=== PATIENT | male | born 1950 | race Caucasian/White ===

== ENCOUNTER 2018-09-06 12:12 | Outpatient (CLI) | payer MEDICARE, SELFPAY ==
[2018-09-08 09:34] LABS: PSA, Diagnostic <0.1 ng/ml (0-6.5)
[2018-09-09 06:30] LABS: Testosterone, Total 69 ng/dL (240-950)
== END 2018-09-06 12:32 ==
PROVIDERS: PCP Internal Medicine; Visit Provider Nurse Practitioner
DX: C61 Malignant neoplasm of prostate (principal)
CPT/HCPCS: 36415; 84403; 84153

== ENCOUNTER 2019-03-08 07:47 | Outpatient (CLI) | payer MEDICARE, SELFPAY ==
[2019-03-08 09:06] LABS: ALT 26 U/L (12-78); AST 15 U/L (15-37); Albumin 3.5 g/dL (3.4-5.0); CREATININE 1.08 mg/dL (0.70-1.30); Calcium 9.3 mg/dL (8.5-10.1); Chloride 107 mmol/L (98-107); Glucose 97 mg/dL (70-100); HDL Cholesterol 40 mg/dL (40-60); LDL CHOLESTEROL 115 mg/dL (<100); Sodium 145 mmol/L (136-145)
[2019-03-08 09:23] LABS: Alkaline Phosphatase 80 U/L (46-116); Anion Gap 4.7 mmol/L (3-11); BUN 26 mg/dL (7-18); Bilirubin, Total 0.3 mg/dL (0.2-1.0); CO2 33.3 mmol/L (21.0-32.0); Cholesterol 173 mg/dL (50-200); Potassium 4.5 mmol/L (3.5-5.1); Triglyceride 132 mg/dL (30-150)
== END 2019-03-08 08:07 ==
PROVIDERS: PCP Internal Medicine; Visit Provider Family Medicine
DX: I10 Essential (primary) hypertension (principal); Z13.6 Encounter for screening for cardiovascular disorders
CPT/HCPCS: 36415; 80053; 80061; 83721

== ENCOUNTER 2019-03-25 09:51 | Outpatient (CLI) | payer MEDICARE, OTHER, SELFPAY ==
[2019-03-27 09:22] LABS: PSA, Diagnostic <0.1 ng/ml (0-6.5)
[2019-03-30 03:37] LABS: Testosterone, Total 99 ng/dL (240-950)
== END 2019-03-25 10:11 ==
PROVIDERS: PCP Internal Medicine; Visit Provider Nurse Practitioner Family
DX: C61 Malignant neoplasm of prostate (principal)
CPT/HCPCS: 36415; 84403; 84153

== ENCOUNTER 2020-08-15 18:53 | Outpatient (REF) | payer MEDICARE, OTHER, SELFPAY | END 2020-08-15 19:13 | LOC: NCHCN 18:53 | PROVIDERS: PCP Internal Medicine; Visit Provider Family Medicine | DX: R82.998 Other abnormal findings in urine (principal); C61 Malignant neoplasm of prostate | CPT/HCPCS: 87086 ==

== ENCOUNTER 2020-09-10 18:07 | Outpatient (CLI) | payer MEDICARE, OTHER, SELFPAY ==
[2020-09-12 12:56] LABS: PSA, Ultrasensitive <0.01 ng/mL (<= 6.5)
[2020-09-14 14:22] LABS: Testosterone, Total 94 ng/dL (240-950)
== END 2020-09-10 18:27 ==
PROVIDERS: PCP Internal Medicine; Visit Provider Nurse Practitioner Family
DX: C61 Malignant neoplasm of prostate (principal)
CPT/HCPCS: 36415; 84153; 84403

== ENCOUNTER 2020-11-27 19:53 | Outpatient (REF) | payer MEDICARE, OTHER, SELFPAY ==
[2020-11-29 22:12] LABS: COVID-19 RT-PCR Result NEGATIVE (Negative)
== END 2020-11-27 20:13 ==
LOC: NCHCN 19:53
PROVIDERS: PCP Internal Medicine; Visit Provider Physician Assistant
DX: Z20.822 Contact with and (suspected) exposure to COVID-19 (principal)
CPT/HCPCS: U0003

== ENCOUNTER 2020-12-09 16:14 | Outpatient (REF) | payer MEDICARE, OTHER, SELFPAY ==
[2020-12-09 21:08] LABS: Abs Immature Grans 0.03 10^3/uL (0.0-0.06); Absolute Basophil Count 0.08 10^3/uL (0.0-0.2); Absolute Eosinophil Count 0.12 10^3/uL (0.0-0.7); Absolute Lymphocyte Count 2.46 10^3/uL (1.2-3.4); Absolute Monocyte Count 1.03 10^3/uL (0.1-0.8); Basophils % 0.7; HCT 43.1 % (40.0-50.0); HGB 14.4 g/dL (13.5-17.5); Immature Grans % 0.2; Lymphocytes % 20.5; MCH 30.6 pg (27.0-33.0); MCHC 33.4 % (32.0-36.0); MCV 91.5 fL (80-95); MPV 10.2 fL (8.0-11.0); Monocytes % 8.6; Nucleated RBC 0 %; Platelet Count 422 10^3/uL (130-400); RBC 4.71 10^6/uL (4.36-5.78); RDW 12.8 % (11.8-14.1); RDW-SD 43.2 fL; WBC 12.02 10^3/uL (4.4-10.8)
[2020-12-09 21:09] LABS: Absolute Neutrophil Count 8.29 10^3/uL (1.2-6.7)
[2020-12-09 21:31] LABS: ALT 33 U/L (16-63); AST 18 U/L (15-37); Albumin 3.9 g/dL (3.4-5.0); Alkaline Phosphatase 76 U/L (46-116); Anion Gap 5.2 mmol/L (3-11); BUN 45 mg/dL (7-18); Bilirubin, Total 0.2 mg/dL (0.2-1.0); CO2 26.8 mmol/L (21.0-32.0); CREATININE 1.9 mg/dL (0.70-1.30); Calcium 10.5 mg/dL (8.5-10.1); Chloride 101 mmol/L (98-107); Estimated GFR 35.02 (mL/min/1.73m2); Glucose 110 mg/dL (74-106); Potassium 5.9 mmol/L (3.5-5.1); Sodium 133 mmol/L (136-145); TSH (W/Ref FT4) 1.52 uIU/mL (0.36-3.74)
[2020-12-09 21:43] LABS: Total Protein 7.5 g/dL (6.4-8.2)
== END 2020-12-09 16:34 ==
LOC: NCHCN 16:14
PROVIDERS: PCP Internal Medicine; Visit Provider Family Medicine
DX: R53.1 Weakness (principal); I10 Essential (primary) hypertension
CPT/HCPCS: 80053; 84443; 85025

== ENCOUNTER → 2021-01-24 05:06 | Outpatient (CLI) | payer MEDICARE, OTHER, SELFPAY ==
--- NOTE | 2021-01-24 | DI.RAD_ITS ---
EXAM: XR CHEST 2V PA LATERAL CLINICAL HISTORY: ANT CHEST WALL PAIN,R07.89 TECHNIQUE: 2D digital imaging was performed. COMPARISON: CR RIGHT RIBS PA CXR-3 VIEWS from 01/15/2016 FINDINGS: MEDIASTINUM: Normal. HEART: Normal. PULMONARY VASCULATURE: Normal. LUNGS: Clear. PLEURAL SPACE: No pleural effusion or pneumothorax. BONE:Mild degenerative disc changes. OTHER FINDINGS:Sternum grossly normal. IMPRESSION: No acute pulmonary findings. DATA REPOSITORY: RADIATION DOSE DELIVERED:
== END ==
PROVIDERS: PCP Internal Medicine; Visit Provider Family Medicine
DX: R07.89 Other chest pain (principal)
CPT/HCPCS: 71046

== ENCOUNTER → 2022-03-27 01:13 | Outpatient (CLI) | payer MEDICARE, OTHER, SELFPAY ==
--- NOTE | 2022-03-27 15:26 | DI.RAD_ITS ---
Exam(s) XR HIP RT COMPLETE AP PELVIS EXAM: XR HIP RT COMPLETE AP PELVIS CLINICAL HISTORY: RT HIP JT PAIN, M25.551. TECHNIQUE: 2D digital imaging was performed of the right hip. Two images were obtained. AP pelvis a nd lateral right hip views were obtained. COMPARISON: No exams were available for comparison FINDINGS: BONES: No acute fracture is present. No bony destructive lesion is seen. JOINTS: No dislocation present. Mild degenerative changes are seen in the hips bilaterally. SOFT TISSUE: Atherosclerosis is present. IMPRESSION: Mild degenerative changes of the right hip. DATA REPOSITORY: RADIATION DOSE DELIVERED:
== END ==
PROVIDERS: PCP Internal Medicine; Visit Provider Family Medicine
DX: M25.551 Pain in right hip (principal); M16.11 Unilateral primary osteoarthritis, right hip
CPT/HCPCS: 73502

== ENCOUNTER 2022-05-18 14:21 | Outpatient (CLI) | payer MEDICARE, OTHER, SELFPAY ==
--- NOTE | 2022-05-18 13:45 | DI.RAD_ITS ---
Exam(s) XR KNEE RT 3V AP,LAT,SATISH EXAM: XR KNEE RT 3V AP,LAT,SATISH CLINICAL HISTORY: R knee pain. TECHNIQUE: 2D digital imaging was performed. COMPARISON: No exams were available for comparison FINDINGS: 3 views No evidence fracture. Moderate-advanced medial compartment joint space narrowing noted. No osteophy annika. Lateral compartment unremarkable. Patellofemoral compartment mild degenerative changes. IMPRESSION: Degenerative changes in the medial compartment. DATA REPOSITORY: RADIATION DOSE DELIVERED:
== END 2022-05-18 14:22 | disposition home or self-care (01) ==
LOC: DIORS 14:22
PROVIDERS: PCP Family Medicine; Referring Provider Family Medicine; Visit Provider Physician Assistant
DX: M17.11 Unilateral primary osteoarthritis, right knee
CPT/HCPCS: 20610; 73562; 99203; J1040

== ENCOUNTER 2022-05-18 15:44 | Outpatient (CLI) | payer MEDICARE, OTHER, SELFPAY ==
[2022-05-19 18:54] LABS: PSA, Ultrasensitive 0.04 ng/mL (<= 6.5)
[2022-05-25 12:48] LABS: Testosterone, Total 58 ng/dL (240-950)
== END 2022-05-18 15:45 | disposition home or self-care (01) ==
LOC: LBO 15:45
PROVIDERS: PCP Family Medicine; Visit Provider Nurse Practitioner Family
DX: C61 Malignant neoplasm of prostate (principal)
CPT/HCPCS: 20610; 36415; 73562; 84153; 84403; 99203; J1040

== ENCOUNTER 2022-05-24 13:02 | Emergency (ER) | payer MEDICARE, OTHER, SELFPAY ==
[2022-05-24 13:07] VITALS: BP 127/68; PULSE 85; RESP 18; TEMP 36.9; O2SAT 91
== END 2022-05-24 14:27 ==
LOC: ER 13:47
PROVIDERS: Emergency Provider Physician Assistant; PCP Family Medicine
DX: Z53.21 Procedure and treatment not carried out due to patient leaving prior to being seen by health care provider (principal)

== ENCOUNTER 2022-05-25 17:28 | Outpatient (REF) | payer MEDICARE, OTHER, SELFPAY ==
[2022-05-25 18:52] LABS: HCT 39.1 % (40.0-50.0); HGB 12.7 g/dL (13.5-17.5); MCH 29.5 pg (27.0-33.0); MCHC 32.5 % (32.0-36.0); MCV 91 fL (80-95); MPV 9.7 fL (8.0-11.0); Platelet Count 594 10^3/uL (130-400); RDW 13.2 % (11.8-14.1); RDW-SD 43.8 fL; WBC 24.46 10^3/uL (4.4-10.8)
[2022-05-25 19:01] LABS: ALT 57 U/L (16-63); AST 33 U/L (15-37); Albumin 2.3 g/dL (3.4-5.0); Alkaline Phosphatase 124 U/L (46-116); Anion Gap 1.2 mmol/L (3-11); BUN 24 mg/dL (7-18); Bilirubin, Total 0.7 mg/dL (0.2-1.0); CO2 30.8 mmol/L (21.0-32.0); CREATININE 1.1 mg/dL (0.70-1.30); Calcium 9.4 mg/dL (8.5-10.1); Chloride 95 mmol/L (98-107); Glucose 121 mg/dL (74-106); Sodium 127 mmol/L (136-145); Total Protein 7.5 g/dL (6.4-8.2)
[2022-05-25 19:15] LABS: Bilirubin Small (Negative); Blood Moderate (Negative); Clarity Cloudy (Clear); Glucose Negative (Negative); Ketones Negative (Negative); Leukocyte Esterase Negative (Negative); Nitrite Negative (Negative); Specific Gravity 1.025 (1.005-1.025); pH 5.5 (5-8)
[2022-05-25 19:38] LABS: Epithelial Cells Rare HPF (Negative); RBC 0-2 HPF (0-2); WBC 0-2 HPF (0-5)
[2022-05-25 19:39] LABS: C & S Indicated? Yes; Crystals Many Amorphous HPF (Negative); Mucus Negative (Negative)
[2022-05-26 14:11] LABS: Abs Immature Grans 0.24 10^3/uL (0.0-0.06); Absolute Eosinophil Count 0.07 10^3/uL (0.0-0.7); Absolute Lymphocyte Count 2.38 10^3/uL (1.2-3.4); Basophils % 0.3; Eosinophils % 0.3; HCT 39.7 % (40.0-50.0); HGB 12.8 g/dL (13.5-17.5); Lymphocytes % 9.7; MCH 29.9 pg (27.0-33.0); MCHC 32.2 % (32.0-36.0); MCV 93 fL (80-95); MPV 10.3 fL (8.0-11.0); Monocytes % 12.5; Neutrophils % 76.2; Platelet Count 607 10^3/uL (130-400); RBC 4.28 10^6/uL (4.36-5.78); RDW 13.2 % (11.8-14.1); RDW-SD 45.1 fL
[2022-05-26 14:12] LABS: Absolute Basophil Count 0.07 10^3/uL (0.0-0.2); Absolute Monocyte Count 3.06 10^3/uL (0.1-0.8); Absolute Neutrophil Count 18.67 10^3/uL (1.2-6.7)
[2022-05-26 15:05] LABS: Diff Comment Agrees w/ Instrument; RBC Morphology Normal
== END 2022-05-25 17:29 | disposition home or self-care (01) ==
LOC: NCHCN 17:28
PROVIDERS: PCP Family Medicine; Visit Provider Family Medicine
DX: R31.9 Hematuria, unspecified (principal)
CPT/HCPCS: 80053; 85027; 81003; 81015; 85025; 87086

== ENCOUNTER → 2022-05-27 09:52 | Outpatient (CLI) | payer MEDICARE, OTHER, SELFPAY ==
--- NOTE | 2022-05-27 08:20 | DI.RAD_ITS ---
Exam(s) XR CHEST 2V PA LATERAL EXAM: XR CHEST 2V PA LATERAL CLINICAL HISTORY: ELEVATED WHITE BLOOD CELL COUNT, D72.829 TECHNIQUE: 2D digital imaging was performed. COMPARISON: CR XR CHEST 2V PA LATERAL from 01/24/2021 FINDINGS: MEDIASTINUM: Normal. HEART: Normal. PULMONARY VASCULATURE: Normal. LUNGS: Dense infiltrate superior segment left lower lobe. Additional patchy infiltrate at left lung base. Right lung appears clear. PLEURAL SPACE: Question of tiny left pleural effusion. No pneumothorax. BONE:Unremarkable for age. IMPRESSION: Left lower lobe pneumonia. DATA REPOSITORY: RADIATION DOSE DELIVERED:
[2022-05-27 09:02] LABS: ESR 77 mm/hr (0-20)
[2022-05-27 09:04] LABS: HCT 36.4 % (40.0-50.0); HGB 12.1 g/dL (13.5-17.5); MCH 29.9 pg (27.0-33.0); MCHC 33.2 % (32.0-36.0); MCV 90 fL (80-95); MPV 9.3 fL (8.0-11.0); Platelet Count 544 10^3/uL (130-400); RBC 4.05 10^6/uL (4.36-5.78); RDW 12.9 % (11.8-14.1); RDW-SD 42.8 fL
[2022-05-27 09:13] LABS: WBC 34.89 10^3/uL (4.4-10.8)
[2022-05-27 09:23] LABS: Absolute Lymphocyte Count 2.09 10^3/uL (1.2-3.4); Absolute Monocyte Count 2.09 10^3/uL (0.1-0.8); Absolute Neutrophil Count 30.01 10^3/uL (1.2-6.7); Atypical Lymphocytes % 1; Diff Comment Manual Differential; RBC Morphology Normal
[2022-05-27 09:35] LABS: ALT 46 U/L (16-63); AST 26 U/L (15-37); Alkaline Phosphatase 147 U/L (46-116); Anion Gap 7.9 mmol/L (3-11); BUN 27 mg/dL (7-18); Bilirubin, Total 0.9 mg/dL (0.2-1.0); CO2 29.1 mmol/L (21.0-32.0); Calcium 9.6 mg/dL (8.5-10.1); Chloride 99 mmol/L (98-107); Glucose 126 mg/dL (74-106); Potassium 3.8 mmol/L (3.5-5.1); Sodium 136 mmol/L (136-145); Total Protein 7.3 g/dL (6.4-8.2)
[2022-05-27 09:36] LABS: C-Reactive Protein > 25.00 mg/dL (0.0-0.3)
== END ==
PROVIDERS: PCP Family Medicine; Visit Provider Family Medicine
DX: R31.9 Hematuria, unspecified (principal); J18.9 Pneumonia, unspecified organism; D72.829 Elevated white blood cell count, unspecified
CPT/HCPCS: 36415; 80053; 85652; 87040; 71046; 85025; 86140

== ENCOUNTER 2022-05-27 10:01 | Outpatient (CLI) | payer MEDICARE, OTHER, SELFPAY | END 2022-05-27 10:02 | disposition home or self-care (01) | LOC: LBO 10:03 | PROVIDERS: PCP Family Medicine; Visit Provider Family Medicine ==

== ENCOUNTER 2022-05-29 11:22 | Inpatient (IN) | payer MEDICARE, OTHER, SELFPAY ==
[2022-05-29] VITALS (35 sets, daily range): BP systolic 109–125; BP diastolic 63–71; PULSE 77–99; RESP 7–22; TEMP 36.9–38.2; O2SAT 92–96
--- NOTE | 2022-05-29 11:30 | RT.EKG_ITS ---
APPROVED REPORT Exam: Resting ECG Reason for Exam: Chest pain Patient Location: E HR:92 bpm ECG Measurements Heart Rate 92 AXIS CO 193 P -47 QRSd 90 QRS 54 QT 323 T 36 QTc 400 Conclusion Sinus or ectopic atrial rhythm...P axis (-45,135)
--- NOTE | 2022-05-29 11:49 | W.ED.GENAD ---
Discharge Plan Disposition Patient Disposition: [facility] INPATIENT Condition: Stable Discharge Details Clinical Impression: Pneumonia Admit Date/Time: 05/31/22 11:28 Admit Provider: Carmelo Michel Attending Provider: Carmelo Michel Primary Care Provider: Stephany Rodriguez ED Provider: Dodie Klein Discharge Data Discharge Date/Time-TO BE ENTERED AT DEPARTURE: 05/29/22 15:23 Medical Decision Making 72-year-old male with a past medical history of hypertension prostate cancer and urethral cancer presents to the ER with a chief complaint of hemoptysis cough shortness of breath. Patient was diagnosed with left lower lobe pneumonia on the and was given levofloxacin 500 mg daily 3 days ago by his PCP. He reports that this morning he had a coughing fit and coughed up some yellow blood-tinged sputum and it scared him which prompted his visit to the emergency department. Family also reports that they called the PCP office and they instructed him to be further evaluated here in the ER. Upon arrival patient is slightly tachypneic, and dyspneic O2 sat is 89 to 92% on room air. Patient was placed on 2 L nasal cannula and is now satting 95%. He reports that since Wednesday he has had exertional shortness of breath and weakness. He is alert and oriented x3. He is complaining of some left-sided chest pain. Denies any diarrhea. Reports nausea with cough. Cardiac work-up ordered including EKG, CRP, lactate blood cultures x2. Albuterol inhaler ordered, COVID test ordered. Patient family report that had a negative rapid home test recently. Will order CT chest to further evaluate the left lower lobe pneumonia and pleural effusion which was noted on chest x-ray . EKG was reviewed by Dr. Baires ER attending, no old EKG available for review. Please see his official report. No evidence of ST elevation no STEMI. WBCs 31.12, hemoglobin 11.6 hematocrit 34.9, platelets 506, absolute neutrophils 27.39, lactate slightly elevated 1.6, sodium 133 BUN 25 creatinine 1.0 GFR greater than 60 glucose 119 AST 54 alk phos 1 4400 C-reactive protein greater than 25.00 1330: Spoke with radiologist Dr. Sutherland regarding CT chest negative for PE very large left-sided pneumonia noted, see official report. No effusion. 1338: Spoke with Dr. Michel who is on for hospitalist regarding patient case and details. After discussion with family and patient at this time admission is recommended due to failed outpatient treatment and borderline hypoxia upon arrival. At this time COVID test is pending. Plan is for admission for IV antibiotics and further treatment and observation. Procalcitonin added onto labs, Zosyn 3.75 g IV ordered. Curb 65 score is 2 moderate risk this is without the COVID result. Medical Records Medical records reviewed: Yes I reviewed the patient's medical records. Lab Data Lab results reviewed: Yes I reviewed the patient's lab results. Labs: 05/29/22 12:45 Blood Blood Culture - Pending 05/29/22 12:00 Blood Blood Culture - Pending Laboratory Tests Range/Units 05/29/22 05/29/22 05/29/22 12:00 12:00 12:00 WBC (4.4-10.8) 10^3/uL 31.12 H* RBC (4.36-5.78) 10^6/uL 3.94 L Hgb (13.5-17.5) g/dL 11.6 L Hct (40.0-50.0) % 34.9 L MCV (80-95) fL 89 MCH (27.0-33.0) pg 29.4 MCHC (32.0-36.0) % 33.2 RDW (11.8-14.1) % 13.0 Plt Count (130-400) 10^3/uL 506 H MPV (8.0-11.0) fL 9.1 Immature Gran % 0.0 Neutrophils % 83.0 Band Neutrophils % 5 Lymphocytes % 6.0 Monocytes % 6.0 Eosinophils % 0.0 Basophils % 0.0 Nucleated RBC % (0.0-0.3) % 0.0 Absolute Neutrophils (1.2-6.7) 10^3/uL 27.39 H Absolute Lymphocytes (1.2-3.4) 10^3/uL 1.87 Absolute Monocytes (0.1-0.8) 10^3/uL 1.87 H Absolute Eosinophils (0.0-0.7) 10^3/uL 0.00 Absolute Basophils (0.0-0.2) 10^3/uL 0.00 RBC Morphology Normal VBG Lactate (0.6-1.4) mmol/L 1.6 H Sodium (136-145) mmol/L 133 L Potassium (3.5-5.1) mmol/L 3.7 Chloride (98-107) mmol/L 97 L Carbon Dioxide (21.0-32.0) mmol/L 30.8 Anion Gap (3-11) mmol/L 5.2 BUN (7-18) mg/dL 25 H Creatinine (0.70-1.30) mg/dL 1.0 Estimated GFR/1.73 m2 (mL/min/1.73m2) >= 60.00 Glucose (74-106) mg/dL 119 H Calcium (8.5-10.1) mg/dL 9.4 Magnesium (1.8-2.4) mg/dL 1.9 Total Bilirubin (0.2-1.0) mg/dL 1.1 H AST (15-37) U/L 54 H ALT (16-63) U/L 54 Alkaline Phosphatase (46-116) U/L 144 H Troponin I (<or=60) ng/L < 50 C-Reactive Protein (0.0-0.3) mg/dL > 25.00 H Total Protein (6.4-8.2) g/dL 7.3 Albumin (3.4-5.0) g/dL 1.7 L COVID-19 Source Range/Units 05/29/22 13:10 WBC (4.4-10.8) 10^3/uL RBC (4.36-5.78) 10^6/uL Hgb (13.5-17.5) g/dL Hct (40.0-50.0) % MCV (80-95) fL MCH (27.0-33.0) pg MCHC (32.0-36.0) % RDW (11.8-14.1) % Plt Count (130-400) 10^3/uL MPV (8.0-11.0) fL Immature Gran % Neutrophils % Band Neutrophils % Lymphocytes % Monocytes % Eosinophils % Basophils % Nucleated RBC % (0.0-0.3) % Absolute Neutrophils (1.2-6.7) 10^3/uL Absolute Lymphocytes (1.2-3.4) 10^3/uL Absolute Monocytes (0.1-0.8) 10^3/uL Absolute Eosinophils (0.0-0.7) 10^3/uL Absolute Basophils (0.0-0.2) 10^3/uL RBC Morphology VBG Lactate (0.6-1.4) mmol/L Sodium (136-145) mmol/L Potassium (3.5-5.1) mmol/L Chloride (98-107) mmol/L Carbon Dioxide (21.0-32.0) mmol/L Anion Gap (3-11) mmol/L BUN (7-18) mg/dL Creatinine (0.70-1.30) mg/dL Estimated GFR/1.73 m2 (mL/min/1.73m2) Glucose (74-106) mg/dL Calcium (8.5-10.1) mg/dL Magnesium (1.8-2.4) mg/dL Total Bilirubin (0.2-1.0) mg/dL AST (15-37) U/L ALT (16-63) U/L Alkaline Phosphatase (46-116) U/L Troponin I (<or=60) ng/L C-Reactive Protein (0.0-0.3) mg/dL Total Protein (6.4-8.2) g/dL Albumin (3.4-5.0) g/dL COVID-19 Source Nasal/Nares HPI General Mode of arrival: ambulatory. Date/Time Provider Initiated Documentation: 05/29/22 11:23. Limitations to Documentation: no limitations. Information obtained by: patient, family, RN notes reviewed and old records reviewed. HPI Narrative: 72-year-old male with a past medical history of hypertension prostate cancer and urethral cancer presents to the ER with a chief complaint of hemoptysis cough shortness of breath. Patient was diagnosed with left lower lobe pneumonia on the and was given levofloxacin 500 mg daily 3 days ago by his PCP. He reports that this morning he had a coughing fit and coughed up some yellow blood-tinged sputum and it scared him which prompted his visit to the emergency department. Family also reports that they called the PCP office and they instructed him to be further evaluated here in the ER. Upon arrival patient is slightly tachypneic, and dyspneic O2 sat is 89 to 92% on room air. Patient was placed on 2 L nasal cannula and is now satting 95%. He reports that since Wednesday he has had exertional shortness of breath and weakness. He is alert and oriented x3. He is complaining of some left-sided chest pain. Denies any diarrhea. Reports nausea with cough. Related Data Home Medications Medication Instructions Recorded Confirmed allopurinol 100 mg tablet 100 mg PO DAILY 05/18/15 05/29/22 naproxen sodium 220 mg tablet 2 tab PO PRN PRN 01/15/16 05/29/22 (Aleve) diltiazem HCl 240 mg 240 mg PO DAILY 04/07/22 05/29/22 capsule,extended release 24 hr oxybutynin chloride 10 mg 10 mg PO DAILY 04/07/22 05/18/22 tablet,extended release 24 hr levofloxacin 500 mg tablet 1 tab PO DAILY 05/29/22 05/29/22 tolterodine 2 mg capsule,extended 1 cap PO DAILY 05/29/22 05/29/22 release 24 hr Allergies Allergy/AdvReac Type Severity Reaction Status Date / Time No Known Allergies Allergy Unverified 05/29/22 11:35 General Stated Complaint: RespSymp LORI: 3 Review of Systems All systems reviewed & are unremarkable except as noted in HPI and below Constitutional Constitutional: Reports as per HPI, Denies chills, Reports fatigue, Denies fever(s) and Reports weakness Neurologic Neurologic: Reports weakness Endocrine Endocrine: Reports fatigue PFSH All Active Problems (Updated 05/29/22 @ 16:55 by Carmelo Michel MD) Weight loss (Acute) Pleuritic chest pain (Acute) Hemoptysis (Acute) Status post prostatectomy (Acute) Pneumonia (Acute) Primary osteoarthritis of right knee (Acute) Colon polyp (Acute) Hypertension (Chronic) Urethral cancer (Acute) Medical History (Updated 05/29/22 @ 16:55 by Carmelo Michel MD) Bilateral cataracts Constipation Gout Prostate cancer Family History (Updated 05/29/22 @ 16:50 by Carmelo Michel MD) Father , age 70's; unknown cause No problems noted. Mother , age 74; unknown cause No problems noted. Brother , age 74, unknown cause No problems noted. Sister , age 76, unknown cause No problems noted. Social History (Updated 05/29/22 @ 16:51 by Carmelo Michel MD) Smoking/Tobacco Use Status: Former Tobacco Use Quit Date: 05/29/22 Tobacco: How many years used: 26 Smoking risk assessment performed?: Yes Alcohol Intake: former Drug use: Never Do you feel safe at home: Yes Do you feel safe in your relationship?: Yes Exam Narrative Exam Narrative: Constitutional: Alert and oriented x3. Appears stated age. Normal body habitus. Head: Normocephalic, no trauma. Eyes: Pupils PERRL, Red reflex noted, EOM's intact. Eyelids symmetrical without lesions, discharge, or swelling. ENT: Bilateral TM's WNL, External ear normal to inspection, no mastoid TTP, swelling, or erythema, Nasal turbinates WNL, no nasal discharge. Normal dentition, Posterior pharynx WNL, no exudate. Chest: RRR, Normal S1, S2, distal pulses intact. Resp: Lungs diminished to auscultation bilaterally, no obvious wheezes, rales, or rhonchi. Abdomen: Soft, non-distended, Normoactive bowel sounds all 4 quads. Musculoskeletal: Normal gait, 5/5 strength to all four extremities. Skin: No suspicious rashes or lesions. Capillary refill less than 2 sec. Neurologic: Cranial nerves II-XII intact. Alert and oriented x 3. Motor: No deficits noted. Sensory: Intact bilaterally all 4 extremities. Reflexes: DTR's intact bilaterally.. Hematologic/Lymphatic: No ecchymosis, no lymphadenopathy. Course Vital Signs Vital signs: Vital Signs Temperature 36.9 C 05/29/22 11:27 Pulse 99 H 05/29/22 11:27 Respiratory Rate 20 05/29/22 11:27 Blood Pressure 122/68 05/29/22 11:27 Pulse Oximetry 92 05/29/22 11:27 Temperature 36.9 C 05/29/22 11:27 Temperature Source Skin 05/29/22 11:27 Pulse 99 H 05/29/22 11:27 Respiratory Rate 20 05/29/22 11:27 Respiratory Effort 05/29/22 11:40 Blood Pressure 122/68 05/29/22 11:27 Blood Pressure Position Sitting 05/29/22 11:27 Pulse Oximetry 92 05/29/22 11:27 Oxygen Delivery Method Room Air 05/29/22 11:27 Oxygen Flow Rate 0 05/29/22 11:27 Pain Level 5 05/29/22 11:27 Lab/Test Results Lab/Test Results: 05/29/22 11:32 Blood Blood Culture - Pending 05/29/22 11:32 Blood Blood Culture - Pending
[2022-05-29 12:06] LABS: Lactate 1.6 mmol/L (0.6-1.4)
[2022-05-29 12:10] LABS: HCT 34.9 % (40.0-50.0); HGB 11.6 g/dL (13.5-17.5); MCH 29.4 pg (27.0-33.0); MCHC 33.2 % (32.0-36.0); MCV 89 fL (80-95); MPV 9.1 fL (8.0-11.0); Platelet Count 506 10^3/uL (130-400); RBC 3.94 10^6/uL (4.36-5.78); RDW-SD 42.5 fL
[2022-05-29] MEDS: Albuterol HFA 8 GM 60 PUFF INH IH (12:17)
[2022-05-29] MEDS: Inhaler, Assist Device 1 EACH MC (12:18)
[2022-05-29 12:23] LABS: WBC 31.12 10^3/uL (4.4-10.8)
[2022-05-29 12:29] LABS: ALT 54 U/L (16-63); AST 54 U/L (15-37); Absolute Lymphocyte Count 1.87 10^3/uL (1.2-3.4); Absolute Monocyte Count 1.87 10^3/uL (0.1-0.8); Absolute Neutrophil Count 27.39 10^3/uL (1.2-6.7); Albumin 1.7 g/dL (3.4-5.0); Alkaline Phosphatase 144 U/L (46-116); Anion Gap 5.2 mmol/L (3-11); BUN 25 mg/dL (7-18); Bands % 5; Bilirubin, Total 1.1 mg/dL (0.2-1.0); CO2 30.8 mmol/L (21.0-32.0); Calcium 9.4 mg/dL (8.5-10.1); Chloride 97 mmol/L (98-107); Diff Comment Manual Differential; Glucose 119 mg/dL (74-106); Magnesium 1.9 mg/dL (1.8-2.4); Potassium 3.7 mmol/L (3.5-5.1); RBC Morphology Normal; Sodium 133 mmol/L (136-145); Total Protein 7.3 g/dL (6.4-8.2); Troponin I < 50 ng/L (<or=60)
[2022-05-29 12:46] LABS: C-Reactive Protein > 25.00 mg/dL (0.0-0.3)
[2022-05-29] MEDS: Omnipaque 350 MG/ML 100 ML BTL 67 ML IJ (12:49)
[2022-05-29] MEDS: Normal Saline Flush 10 ML SYR IVP (12:54)
--- NOTE | 2022-05-29 13:00 | DI.CT_ITS ---
Exam(s) CT CHEST PE CTA EXAM: CT CHEST PE CTA CLINICAL HISTORY: Hemoptysis, hx pneumonia, effusion, R/O PE. TECHNIQUE: Imaging Protocol: Axial CT angiography was performed with multi-slice acquisition and mu lti-planar reconstructions as well as axial, coronal and sagittal MIP reconstructions. CONTRAST MATERIAL: Intravenous: Omnipaque 350 Contrast volume:67 ml COMPARISON: CT ABD PELVIS WITH CONTRAST from 08/02/2013 CR XR CHEST 2V PA LATERAL from 01/24/2021 CR XR CHEST 2V PA LATERAL from 05/27/2022 FINDINGS: Pulmonary Arteries: No evidence of filling defect to suggest pulmonary emboli. Tracheobronchial tree: No bronchiectasis or mucus plugging. Mediastinum and Bekah: 1.9 centimeter left hilar lymph node. No fluid collection. Pulmonary parenchyma: Underlying emphysematous changes. Dense infiltrate occupying a large portion o f the left lower lobe. Large bleb seen the superior aspect of the left lower lobe. Multiple other s maller blebs. Additional patchy infiltrates in the anterior left upper lobe and lingula. Focal area of scarring at the confluence of the major and minor fissures on the right. No right-sided infiltra annika. There is a bleb extending into the inferior right neck adjacent to the trachea. Pleura: No effusion or pneumothorax. Heart: The heart is not dilated. Mild coronary artery calcifications are seen. Aorta: Thoracic aorta non-dilated. No aneurysm. No dissection. Mild atherosclerotic changes. Upper abdomen: Stable left adrenal nodule. Small hiatal hernia. Pancreas somewhat atrophic.. Bones: Unremarkable for age. IMPRESSION: Severe left lower lobe pneumonia. Additional infiltrates in the lingula. No evidence of pulmonary emb olism. RADIATION DOSE DELIVERED: 321.51mGy.cm Total DLP DATA REPOSITORY: All CT scans at this facility are submitted to the National Radiology Data Registry (NRDR) Dose Index Registry (DIR) with the [employer] ([employer]). RADIATION OPTIMIZATION: All CT scans at this facility use at least one of these dose optimization te chniques: automated exposure control; mA and/or kV adjustment per patient size (includes targeted exa ms where dose is matched to clinical indication); or iterative reconstruction.
[2022-05-29] MEDS: Normal Saline 1,000 ML 200 ML IV (13:08)
[2022-05-29 13:20] LABS: Source Nasal/Nares
[2022-05-29 14:10] LABS: COVID-19 PCR Negative (Negative)
[2022-05-29 14:30] LABS: Procalcitonin 0.4 ng/mL
[2022-05-29] MEDS: PIPERACILLIN/TAZO 3.375 GM in Normal Saline 50 ML IVPB (14:45)
--- NOTE | 2022-05-29 16:04 | HPE_ITS ---
Date of service: 05/29/22 Time of Service: 16:04 Assessment and Plan Assessment and plan (1) Pneumonia: Status: Acute Assessment and plan: Continue Levaquin and Zosyn to the regimen. Encourage use of I-S and acapella, put him on scheduled aerosolized bronchodilators. Supply supplemental oxygen to keep his SPO2 greater than 90%. Obtain sputum culture and blood cultures as well as sputum for mycoplasma. Check urine antigen for Legionella and strep antigen. In the setting of hemoptysis and weight loss we will also order sputum for cytology. Patient gives no known exposure to tuberculosis other than he had BCG antigen injected into his bladder. We will give him cough suppressants including Tussionex and also will order Mucinex. Professional time spent interviewing and examining patient, discussion of goals of care with hospital team (care management, nursing and consulting professiona ls) was 45 minutes. (2) Hemoptysis: Status: Acute Assessment and plan: As above. If there is no resolution with the above treatment consider fiberoptic bronchoscopy for definitive diagnosis. (3) Pleuritic chest pain: Status: Acute Assessment and plan: We will give the patient Tussionex for his cough and apply lidocaine patches. (4) Weight loss: Status: Acute Assessment and plan: Given his history of urethral cancer and prostate cancer and 20 pound weight loss over the past month that was involuntary this raises suspicion that he has metastatic cancer. (5) Hypertension: Status: Chronic Assessment and plan: Continue home dose of diltiazem CD History of Present Illness History of Present Illness Chief Complaint: hemptysis, fever, pleuritic chest pain Narrative: 72-year-old male former smoker quit smoking 30 years ago who has a history of prostate cancer status post prostatectomy and subsequent radiation treatment presents emergency department with a 1 week history of increasing shortness of breath and 3-day history of left-sided pleuritic chest pain and 1 day history of hemoptysis. Patient is fully vaccinated against COVID and is had both booster shots. He took a COVID test at home that was negative. He was seen in his PCP office in [facility] 3 days ago and started on Levaquin 500 mg daily. In spite of this he has had worsening cough and dyspnea and now new onset hemoptysis. When he started with a hemoptysis he called his PCP office and was referred to the emergency department. Work-up included chest x-ray and CT scan of the chest. Chest x-ray revealed left lower lobe pneumonia. He underwent CTA of his chest to rule out a pulmonary embolus and this showed severe left lower lobe pneumonia with additional infiltrates in the lingula. No PE. No pleural effusion. Laboratory studies were consistent with pneumonia he had a white count of 31,000. He has a mild anemia with a hemoglobin 11.6 g hematocrit 34%. He has a leftward shift and his white cell count with 27,000 polys. Blood lactate was mildly elevated at 1.6 chemistry panel was remarkable for mild elevation of his liver enzymes with an AST of 54 alkaline phosphatase 144 and high CRP of greater than 25 and a procalcitonin level of 0.4. Troponin I was less than 50. On arrival to the emergency department his temperature was 36.9 his pulse oximetry demonstrated a an SPO2 of 92% but at times would drop down to 88%. He was placed on supplemental oxygen at 1 L/min per nasal cannula which is kept his oxygen saturation in the mid 90s. Rest of his vital signs are stable. Nancy Klein from our ED department discussed the case with me and we felt that he be best served as an observation for parenteral antibiotics and bronchodilators and cultures. Blood cultures were obtained in the emergency department I have ordered sputum culture and sputum for mycoplasma. Zosyn has been added to his antibiotic regimen he will be continued on Levaquin. Additional history from the patient reveals he has been having night sweats and has had about a 20 pound weight loss over the past month raising some concern for possible malignancy. I shared this concern with the patient but explained that everything is pointing more towards a pneumonia and at this point we will treat it like pneumonia with broad-spectrum IV antibiotics and see how he does. Review of Systems All systems reviewed & are unremarkable except as noted in HPI and below PFSH All Active Problems (Updated 05/29/22 @ 16:55 by Carmelo Michel MD) Weight loss (Acute) Pleuritic chest pain (Acute) Hemoptysis (Acute) Status post prostatectomy (Acute) Pneumonia (Acute) Primary osteoarthritis of right knee (Acute) Colon polyp (Acute) Hypertension (Chronic) Urethral cancer (Acute) Medical History (Updated 05/29/22 @ 16:55 by Carmelo Michel MD) Bilateral cataracts Constipation Gout Prostate cancer Family History (Updated 05/29/22 @ 16:50 by Carmelo Michel MD) Father , age 70's; unknown cause No problems noted. Mother , age 74; unknown cause No problems noted. Brother , age 74, unknown cause No problems noted. Sister , age 76, unknown cause No problems noted. Social History (Updated 05/29/22 @ 16:51 by Carmelo Michel MD) Smoking/Tobacco Use Status: Former Tobacco Use Quit Date: 05/29/22 Tobacco: How many years used: 26 Smoking risk assessment performed?: Yes Alcohol Intake: former Drug use: Never Do you feel safe at home: Yes Do you feel safe in your relationship?: Yes Meds Allergies and Home Medications Allergies Allergy/AdvReac Type Severity Reaction Status Date / Time No Known Allergies Allergy Unverified 05/29/22 11:35 Home Medications Medication Instructions Recorded Confirmed Type allopurinol 100 mg tablet 100 mg PO DAILY 05/18/15 05/29/22 History naproxen sodium 220 mg tablet 2 tab PO PRN PRN 01/15/16 05/29/22 History (Aleve) diltiazem HCl 240 mg 240 mg PO DAILY 04/07/22 05/29/22 History capsule,extended release 24 hr oxybutynin chloride 10 mg 10 mg PO DAILY 04/07/22 05/18/22 History tablet,extended release 24 hr levofloxacin 500 mg tablet 1 tab PO DAILY 05/29/22 05/29/22 History tolterodine 2 mg capsule,extended 1 cap PO DAILY 05/29/22 05/29/22 History release 24 hr Exam Narrative Exam Narrative: Alert and oriented x4 HEENT: Atraumatic normocephalic, pupils equally round reactive to light and accommodation, extraocular motion intact, TMs intact, nares moist and patent without exudate or bleeding, oropharynx noninjected without exudate, teeth in poor repair with a number of teeth and a few teeth with caries Neck: Supple, nontender, without thyromegaly or lymphadenopathy or JVD. Normal carotid pulses Lungs: Clear to auscultation on the right side but the left side he has markedly diminished breath sounds at the left base along with some scattered rhonchi on the left side Heart: Regular rate and rhythm without murmur rub or gallop. Normal apical impulse Abdomen: Nondistended, normal bowel sounds, nontender to palpation or percussion, no organomegaly, no bruits, no palpable masses Genitalia and rectal exam: Deferred Extremities: Normal range of motion with normal strength. No peripheral cyanosis or edema. Normal pulses Neurologic: Cranial nerves II through XII grossly within normal limits. Normal strength and sensation over the face trunk and extremities. Results Imaging Chest x-ray: report reviewed and image reviewed CT scan - chest: report reviewed and image reviewed EKG: report reviewed and image reviewed Labs Result diagrams: 05/29/22 12:00 05/29/22 12:00 Labs: Laboratory Results - last 24 hr 05/29/22 05/29/22 05/29/22 12:00 12:00 12:00 WBC 31.12 H* RBC 3.94 L Hgb 11.6 L Hct 34.9 L MCV 89 MCH 29.4 MCHC 33.2 RDW 13.0 Plt Count 506 H MPV 9.1 Immature Gran % 0.0 Neutrophils % 83.0 Band Neutrophils % 5 Lymphocytes % 6.0 Monocytes % 6.0 Eosinophils % 0.0 Basophils % 0.0 Nucleated RBC % 0.0 Absolute Neutrophils 27.39 H Absolute Lymphocytes 1.87 Absolute Monocytes 1.87 H Absolute Eosinophils 0.00 Absolute Basophils 0.00 RBC Morphology Normal VBG Lactate 1.6 H Sodium 133 L Potassium 3.7 Chloride 97 L Carbon Dioxide 30.8 Anion Gap 5.2 BUN 25 H Creatinine 1.0 Estimated GFR/1.73 m2 >= 60.00 Glucose 119 H Calcium 9.4 Magnesium 1.9 Total Bilirubin 1.1 H AST 54 H ALT 54 Alkaline Phosphatase 144 H Troponin I < 50 C-Reactive Protein > 25.00 H Total Protein 7.3 Albumin 1.7 L Procalcitonin COVID-19 Source SARS-CoV-2 (PCR) 05/29/22 05/29/22 12:00 13:10 WBC RBC Hgb Hct MCV MCH MCHC RDW Plt Count MPV Immature Gran % Neutrophils % Band Neutrophils % Lymphocytes % Monocytes % Eosinophils % Basophils % Nucleated RBC % Absolute Neutrophils Absolute Lymphocytes Absolute Monocytes Absolute Eosinophils Absolute Basophils RBC Morphology VBG Lactate Sodium Potassium Chloride Carbon Dioxide Anion Gap BUN Creatinine Estimated GFR/1.73 m2 Glucose Calcium Magnesium Total Bilirubin AST ALT Alkaline Phosphatase Troponin I C-Reactive Protein Total Protein Albumin Procalcitonin 0.4 COVID-19 Source Nasal/Nares SARS-CoV-2 (PCR) Negative Last Vital Signs Temp 37.0 C 05/29/22 15:08 Pulse 79 05/29/22 15:08 Resp 16 05/29/22 15:08 BP 115/70 05/29/22 15:08 Pulse Ox 93 05/29/22 15:08
[2022-05-29] MEDS: guaiFENesin 600 MG TABCR PO (16:39)
[2022-05-29] MEDS: Albuterol/Ipratropium 3 ML UPD VIAL UPD ×2 (16:40→19:59)
[2022-05-29] MEDS: Benzonatate 100 MG CAP PO (17:22)
[2022-05-29 19:59] LABS: Troponin I < 50 ng/L (<or=60)
[2022-05-29] MEDS: Benzonatate 200 MG CAP PO (19:59)
[2022-05-29] MEDS: Acetaminophen 325 MG TAB PO (19:59)
[2022-05-29] MEDS: PIPERACILLIN/TAZO 4.5 GM in Normal Saline 100 ML IVPB (22:32)
[2022-05-29] MEDS: Normal Saline 500 ML 10 ML IV (22:33)
[2022-05-30] VITALS (14 sets, daily range): BP systolic 107–115; BP diastolic 58–73; PULSE 61–87; RESP 2–19; TEMP 36.4–38.5; O2SAT 91–95
[2022-05-30] MEDS: PIPERACILLIN/TAZO 4.5 GM in Normal Saline 100 ML IVPB ×3 (05:48→20:32)
[2022-05-30 06:56] LABS: Abs Immature Grans 0.15 10^3/uL (0.0-0.06); HCT 28.4 % (40.0-50.0); HGB 9.6 g/dL (13.5-17.5); MCH 29.5 pg (27.0-33.0); MCHC 33.8 % (32.0-36.0); MCV 87 fL (80-95); MPV 9.4 fL (8.0-11.0); Platelet Count 454 10^3/uL (130-400); RBC 3.25 10^6/uL (4.36-5.78); RDW 13.1 % (11.8-14.1); RDW-SD 41.9 fL
[2022-05-30 06:58] LABS: Absolute Lymphocyte Count 1.53 10^3/uL (1.2-3.4)
[2022-05-30 07:03] LABS: Absolute Eosinophil Count 0.22 10^3/uL (0.0-0.7); Absolute Monocyte Count 1.74 10^3/uL (0.1-0.8); Absolute Neutrophil Count 18.31 10^3/uL (1.2-6.7); Diff Comment Manual Differential
[2022-05-30 07:19] LABS: ALT 58 U/L (16-63); AST 56 U/L (15-37); Albumin 1.3 g/dL (3.4-5.0); Alkaline Phosphatase 124 U/L (46-116); Anion Gap 4.7 mmol/L (3-11); BUN 23 mg/dL (7-18); Bilirubin, Total 0.9 mg/dL (0.2-1.0); CO2 29.3 mmol/L (21.0-32.0); CREATININE 0.8 mg/dL (0.70-1.30); Calcium 8.6 mg/dL (8.5-10.1); Chloride 101 mmol/L (98-107); Glucose 98 mg/dL (74-106); Potassium 3.8 mmol/L (3.5-5.1); Sodium 135 mmol/L (136-145); Total Protein 5.8 g/dL (6.4-8.2)
[2022-05-30] MEDS: Allopurinol 100 MG TAB PO (08:17)
[2022-05-30] MEDS: guaiFENesin 600 MG TABCR PO ×2 (08:17→20:33)
[2022-05-30] MEDS: dilTIAZem CD 120 MG CAPCR 240 MG PO (08:17)
[2022-05-30] MEDS: Benzonatate 200 MG CAP PO ×3 (08:17→20:33)
[2022-05-30] MEDS: Tolterodine 2 MG CAPCR PO (08:18)
[2022-05-30] MEDS: Albuterol/Ipratropium 3 ML UPD VIAL UPD ×4 (08:18→20:33)
[2022-05-30] MEDS: levoFLOXacin 750 MG/150 ML BAG 100 MG IVPB (10:12)
[2022-05-30 11:37] LABS: HCT 29.2 % (40.0-50.0)
[2022-05-30] MEDS: Acetaminophen 325 MG TAB PO ×2 (11:40→20:32)
--- NOTE | 2022-05-30 16:09 | W.PM.PROGNOT ---
Date of Service Date of service: 05/30/22 Time of Service: 16:09 Assessment and Plan Assessment and plan (1) Pneumonia: Status: Acute Assessment and plan: continue Zosyn and Levaquin; sputum gram stain demonstrated many GPC and moderate WBC but culture has rare growth w/ normal shaquille. Blood cultures have no growth. Professional time spent interviewing and examining patient, discussion of goals of care with hospital team (care management, nursing and consulting professionals) was 20 minutes. (2) Hemoptysis: Status: Acute Assessment and plan: As above. If there is no resolution with the above treatment consider fiberoptic bronchoscopy for definitive diagnosis. (3) Pleuritic chest pain: Status: Acute Assessment and plan: We will give the patient Tussionex for his cough and apply lidocaine patches. (4) Weight loss: Status: Acute Assessment and plan: Given his history of urethral cancer and prostate cancer and 20 pound weight loss over the past month that was involuntary this raises suspicion that he has metastatic cancer. (5) Hypertension: Status: Chronic Assessment and plan: Continue home dose of diltiazem CD Subjective Subjective Interval history since last seen: Pedro is feeling somewhat better today. No having hemoptysis but has left sided pleuritic chest pains. T max was 38.5 but now afebrile after Tylenol. Patient is on 1 LPM nasal cannula Exam Narrative Exam Narrative: Alert and oriented x 3. Patient seen while his was visiting and I spoke w/ her about the findings and my concerns over his 20 lbs wt loss over the prior month and that he could have an underlying cancer LUngs: left side w/ absent breath sounds posteriorly and over the base to about half way up; rhonchin in upper field. clear on right side. Heart: RRR Extremities: no edema Abdomen: soft, nontender. Objective Last Vital Signs Temp 37.2 C 05/30/22 15:31 Pulse 79 05/30/22 15:31 Resp 18 05/30/22 15:31 BP 108/73 05/30/22 15:31 Pulse Ox 93 05/30/22 15:31 Laboratory Results - last 24 hr 05/29/22 05/30/22 05/30/22 19:34 06:08 06:08 WBC 21.80 H RBC 3.25 L Hgb 9.6 L D Hct 28.4 L MCV 87 MCH 29.5 MCHC 33.8 RDW 13.1 Plt Count 454 H MPV 9.4 Immature Gran % 0.0 Neutrophils % 84.0 Lymphocytes % 7.0 Monocytes % 8.0 Eosinophils % 1.0 Basophils % 0.0 Nucleated RBC % 0.0 Absolute Neutrophils 18.31 H Absolute Lymphocytes 1.53 Absolute Monocytes 1.74 H Absolute Eosinophils 0.22 Absolute Basophils 0.00 Sodium 135 L Potassium 3.8 Chloride 101 Carbon Dioxide 29.3 Anion Gap 4.7 BUN 23 H Creatinine 0.8 Estimated GFR/1.73 m2 >= 60.00 Glucose 98 Calcium 8.6 Total Bilirubin 0.9 AST 56 H ALT 58 Alkaline Phosphatase 124 H Troponin I < 50 Total Protein 5.8 L Albumin 1.3 L / 11:15 WBC RBC Hgb 10.0 L Hct 29.2 L MCV MCH MCHC RDW Plt Count MPV Immature Gran % Neutrophils % Lymphocytes % Monocytes % Eosinophils % Basophils % Nucleated RBC % Absolute Neutrophils Absolute Lymphocytes Absolute Monocytes Absolute Eosinophils Absolute Basophils Sodium Potassium Chloride Carbon Dioxide Anion Gap BUN Creatinine Estimated GFR/1.73 m2 Glucose Calcium Total Bilirubin AST ALT Alkaline Phosphatase Troponin I Total Protein Albumin
--- NOTE | 2022-05-30 17:27 | INITIAL_ITS ---
- If Service Date Differs Date of service: 05/30/22 Time of Service: 17:27 Care Management Initial Assess REASON FOR HOSPITALIZATION:: Community Acquired Pneumonia PAST MEDICAL HISTORY/PAST SURGICAL HISTORY:: Weight loss (Acute). Pleuritic chest pain (Acute). Hemoptysis (Acute). Status post prostatectomy (Acute). Pneumonia (Acute). Primary osteoarthritis of right knee (Acute). Colon polyp (Acute). Hypertension (Chronic). Urethral cancer (Acute). Medical History (Updated 05/29/22 @ 16:55 by Carmelo Michel MD). Bilateral cataracts. Constipation. Gout. Prostate cancer PREVIOUS FUNCTIONAL STATUS/SOCIAL/FAMILY SUPPORTS:: Resides in [facility] with , Jeanette. Independent at baseline. CURRENT FUNCTIONAL STATUS:: Still requiring oxygen; 1L at this time, per MD much improved anticipate weekend discharge with continued improvement. Has patient been provided with info about the portal/API?: Yes Did the patient sign up for the portal?: No CODE STATUS:: Full Code INSURANCE COVERAGE / FINANCIAL ISSUES:: Medicare. [employer] CURRENT HOME/COMMUNITY SERVICES/EQUIPMENT:: None, currently. PRIMARY CARE PHYSICIAN:: Stephany Rodriguez. POTENTIAL DISCHARGE NEEDS:: Follow up appointments. PATIENT/FAMILY EDUCATION NEEDS:: Review discharge instructions, discuss Ask Me Three. ANTICIPATED BARRIERS TO DISCHARGE:: None identified. TRANSPORTATION:: Via private vehicle with family. PLAN:: With continued improvement, anticipate Pedro will discharge home with no additional services. He will follow up with his PCP and plan of care as prescribed and transport via private vehicle with family. CM continues to follow.
[2022-05-31] VITALS (15 sets, daily range): BP systolic 106–137; BP diastolic 58–69; PULSE 70–91; RESP 8–24; TEMP 37.1–38.5; O2SAT 86–96
[2022-05-31] MEDS: PIPERACILLIN/TAZO 4.5 GM in Normal Saline 100 ML IVPB (05:38)
[2022-05-31] MEDS: Polyethylene Glycol 3350 17 GM PACKET PO (05:47)
[2022-05-31 06:46] LABS: Abs Immature Grans 0.21 10^3/uL (0.0-0.06); Absolute Basophil Count 0.09 10^3/uL (0.0-0.2); Absolute Eosinophil Count 0.24 10^3/uL (0.0-0.7); Absolute Lymphocyte Count 1.63 10^3/uL (1.2-3.4); Absolute Monocyte Count 1.26 10^3/uL (0.1-0.8); Basophils % 0.5; Eosinophils % 1.3; HCT 30.5 % (40.0-50.0); HGB 10.4 g/dL (13.5-17.5); Immature Grans % 1.1; Lymphocytes % 8.8; MCH 30.4 pg (27.0-33.0); MCHC 34.1 % (32.0-36.0); MCV 89 fL (80-95); MPV 9.3 fL (8.0-11.0); Monocytes % 6.8; Neutrophils % 81.5; Platelet Count 536 10^3/uL (130-400); RBC 3.42 10^6/uL (4.36-5.78); RDW 13.6 % (11.8-14.1); RDW-SD 44.6 fL; WBC 18.49 10^3/uL (4.4-10.8)
[2022-05-31 06:49] LABS: Absolute Neutrophil Count 15.07 10^3/uL (1.2-6.7)
[2022-05-31 07:05] LABS: Anion Gap 4.9 mmol/L (3-11); BUN 21 mg/dL (7-18); CO2 31.1 mmol/L (21.0-32.0); CREATININE 0.9 mg/dL (0.70-1.30); Calcium 8.7 mg/dL (8.5-10.1); Chloride 101 mmol/L (98-107); Glucose 104 mg/dL (74-106); Potassium 3.8 mmol/L (3.5-5.1); Sodium 137 mmol/L (136-145)
[2022-05-31] MEDS: Benzonatate 200 MG CAP PO ×3 (09:06→19:51)
[2022-05-31] MEDS: Allopurinol 100 MG TAB PO (09:06)
[2022-05-31] MEDS: guaiFENesin 600 MG TABCR PO ×2 (09:06→19:51)
[2022-05-31] MEDS: Tolterodine 2 MG CAPCR PO (09:06)
[2022-05-31] MEDS: Normal Saline Flush 10 ML SYR IVP (09:06)
[2022-05-31] MEDS: dilTIAZem CD 120 MG CAPCR 240 MG PO (09:07)
[2022-05-31] MEDS: Albuterol/Ipratropium 3 ML UPD VIAL UPD ×4 (09:09→19:51)
[2022-05-31] MEDS: levoFLOXacin 750 MG/150 ML BAG 100 MG IVPB (10:31)
[2022-05-31] MEDS: Acetaminophen 325 MG TAB PO ×2 (12:36→19:51)
--- NOTE | 2022-05-31 12:49 | PGE_ITS ---
Date of Service Date of service: 05/31/22 Time of Service: 12:49 Assessment and Plan Assessment and plan (1) Pneumonia: Status: Acute Assessment and plan: Blood cultures continue to be no growth. Sputum just grew normal oral shaquille however the gram stain showed many gram-positive cocci. His white count is improved but slowly. I will discontinue his Zosyn in favor of Rocephin 2 g daily. Discontinue his Levaquin. Professional time spent interviewing and examining patient, discussion of goals of care with hospital team (care management, nursing and consulting perico henderson) was 20 minutes. (2) Hemoptysis: Status: Acute Assessment and plan: Continue treatment for community-acquired pneumonia but if no resolution then will make pulmonary referral for bronchoscopy. (3) Pleuritic chest pain: Status: Acute Assessment and plan: We will give the patient Tussionex for his cough and apply lidocaine patches. Left-sided pleuritic chest pain is markedly better today. (4) Weight loss: Status: Acute Assessment and plan: Given his history of urethral cancer and prostate cancer and 20 pound weight loss over the past month that was involuntary this raises suspicion that he has metastatic cancer. Patient should have OP CT of his abdomen and pelvis. However, if infiltrates are not improving then I would repeat CT of chest along w/ images of abdomen and pelvis. (5) Hypertension: Status: Chronic Assessment and plan: Continue home dose of diltiazem CD Subjective Subjective Interval history since last seen: Cough is better. Hemoptysis is improved just occasional tinge of blood. No fevers overnight. Oxygen requirement is down to 1 L/min. Exam Narrative Exam Narrative: Patient clinically looks better he is able to sit up in bed talk with his does not get dyspneic with prolonged conversation overall he seems to be improved. Lungs are clear on the right left side he still has some diminished breath sounds at left lung base with some rhonchi and wheezes Heart is regular rate and rhythm Abdomen soft nondistended nontender Extremities without edema or cyanosis. Objective Last Vital Signs Temp 38.5 C H 05/31/22 12:36 Pulse 79 05/31/22 09:09 Resp 22 05/31/22 09:09 BP 129/68 05/31/22 07:11 Pulse Ox 95 05/31/22 09:12 Laboratory Results - last 24 hr 05/31/22 05/31/22 06:17 06:17 WBC 18.49 H RBC 3.42 L Hgb 10.4 L Hct 30.5 L MCV 89 MCH 30.4 MCHC 34.1 RDW 13.6 Plt Count 536 H MPV 9.3 Immature Gran % 1.1 Neutrophils % 81.5 Lymphocytes % 8.8 Monocytes % 6.8 Eosinophils % 1.3 Basophils % 0.5 Nucleated RBC % 0.0 Absolute Neutrophils 15.07 H Absolute Lymphocytes 1.63 Absolute Monocytes 1.26 H Absolute Eosinophils 0.24 Absolute Basophils 0.09 Sodium 137 Potassium 3.8 Chloride 101 Carbon Dioxide 31.1 Anion Gap 4.9 BUN 21 H Creatinine 0.9 Estimated GFR/1.73 m2 >= 60.00 Glucose 104 Calcium 8.7
[2022-05-31] MEDS: cefTRIAXone 2 GM/50 ML BAG IVPB (14:59)
[2022-06-01] VITALS (11 sets, daily range): BP systolic 95–129; BP diastolic 50–70; PULSE 70–93; RESP 2–18; TEMP 36.6–38.7; O2SAT 91–94
[2022-06-01] MEDS: Acetaminophen 325 MG TAB PO ×3 (02:04→20:41)
[2022-06-01 06:59] LABS: Abs Immature Grans 0.17 10^3/uL (0.0-0.06); Absolute Basophil Count 0.11 10^3/uL (0.0-0.2); Absolute Eosinophil Count 0.13 10^3/uL (0.0-0.7); Absolute Monocyte Count 1.25 10^3/uL (0.1-0.8); Absolute Neutrophil Count 18.08 10^3/uL (1.2-6.7); Basophils % 0.5; Eosinophils % 0.6; HCT 29.4 % (40.0-50.0); HGB 10.2 g/dL (13.5-17.5); Immature Grans % 0.8; Lymphocytes % 9.9; MCH 30.8 pg (27.0-33.0); MCHC 34.7 % (32.0-36.0); MCV 89 fL (80-95); MPV 9.4 fL (8.0-11.0); Monocytes % 5.7; Neutrophils % 82.5; Platelet Count 585 10^3/uL (130-400); RBC 3.31 10^6/uL (4.36-5.78); RDW 13.7 % (11.8-14.1); RDW-SD 44.3 fL; WBC 21.92 10^3/uL (4.4-10.8)
[2022-06-01 07:01] LABS: Absolute Lymphocyte Count 2.17 10^3/uL (1.2-3.4)
[2022-06-01 07:06] LABS: Anion Gap 4.5 mmol/L (3-11); BUN 19 mg/dL (7-18); CO2 30.5 mmol/L (21.0-32.0); CREATININE 0.9 mg/dL (0.70-1.30); Calcium 8.8 mg/dL (8.5-10.1); Chloride 101 mmol/L (98-107); Glucose 96 mg/dL (74-106); Potassium 3.8 mmol/L (3.5-5.1); Sodium 136 mmol/L (136-145)
[2022-06-01 07:28] LABS: Legionella Ag Detection Urine Negative (Negative)
[2022-06-01] MEDS: Normal Saline Flush 10 ML SYR IVP ×2 (08:29→20:40)
[2022-06-01] MEDS: dilTIAZem CD 120 MG CAPCR 240 MG PO (08:29)
[2022-06-01] MEDS: Tolterodine 2 MG CAPCR PO (08:29)
[2022-06-01] MEDS: Allopurinol 100 MG TAB PO (08:30)
[2022-06-01] MEDS: Benzonatate 200 MG CAP PO ×3 (08:30→20:41)
[2022-06-01] MEDS: guaiFENesin 600 MG TABCR PO ×2 (08:30→20:40)
[2022-06-01] MEDS: Albuterol/Ipratropium 3 ML UPD VIAL UPD ×3 (09:04→20:40)
[2022-06-01] MEDS: PIPERACILLIN/TAZO 3.375 GM in Normal Saline 50 ML IVPB ×3 (09:38→20:39)
--- NOTE | 2022-06-01 14:26 | PDOC.CMPRO ---
- If Service Date Differs Date of service: 06/01/22 Time of Service: 14:26 Care Management Progress Note S/O: Pedro was lying in bed when CM met with him. He is alert, oriented and easy to engage in conversation. Pedro is on IV abx, neb tx and cough meds. He is currently 94% on 2L NC and reports that he is feeling better today, and notes less sputum production. A:72 year old male admitted to [facility] on 05/30/22 for Community Acquired Pneumonia P: Anticipate, Pedro will discharge home with no additional services. He will follow up with his PCP and plan of care as prescribed and transport via private vehicle with family. CM continues to follow.
--- NOTE | 2022-06-01 18:58 | W.PM.PROGNOT ---
Date of Service Date of service: 06/01/22 Time of Service: 18:58 Assessment and Plan Assessment and plan (1) Pneumonia: Status: Acute Assessment and plan: Blood cultures continue to be no growth. Sputum grew marshall albicans. His WBC count had started to trend downward so levaquin and Zosyn were stopped and rocephin started. However, WBC count then increased so is now back on Zosyn. Clinically better. Monitor WBC count. (2) Hemoptysis: Status: Acute Assessment and plan: No current hemoptysis. (3) Pleuritic chest pain: Status: Acute Assessment and plan: Continue Tussionex for his cough and apply lidocaine patches. Left-sided pleuritic chest pain continues to improve. (4) Weight loss: Status: Acute Assessment and plan: Given his history of urethral cancer and prostate cancer and 20 pound weight loss over the past month that was involuntary this raises suspicion that he has metastatic cancer. Patient should have OP CT of his abdomen and pelvis. However, if infiltrates are not improving then I would repeat CT of chest along w/ images of abdomen and pelvis (5) Hypertension: Status: Chronic Assessment and plan: Continue home dose of diltiazem CD Subjective Subjective Patient reports: feels better and fever; denies diarrhea, nausea or vomiting Exam Narrative Exam Narrative: Gen: conversational. Lying supine in bed with NC in place. Lungs: Left with soft rhonchi. Generally diminished breath sounds. Heart: regular rate and rhythm Abdomen: soft NT, ND Extremities without edema or cyanosis. Objective Last Vital Signs Temp 37.5 C 06/01/22 15:51 Pulse 72 06/01/22 15:51 Resp 18 06/01/22 15:51 BP 121/66 06/01/22 15:51 Pulse Ox 94 06/01/22 15:51 Laboratory Results - last 24 hr 05/29/22 06/01/22 06/01/22 20:45 06:10 06:10 WBC 21.92 H RBC 3.31 L Hgb 10.2 L Hct 29.4 L MCV 89 MCH 30.8 MCHC 34.7 RDW 13.7 Plt Count 585 H MPV 9.4 Immature Gran % 0.8 Neutrophils % 82.5 Lymphocytes % 9.9 Monocytes % 5.7 Eosinophils % 0.6 Basophils % 0.5 Nucleated RBC % 0.0 Absolute Neutrophils 18.08 H Absolute Lymphocytes 2.17 Absolute Monocytes 1.25 H Absolute Eosinophils 0.13 Absolute Basophils 0.11 Sodium 136 Potassium 3.8 Chloride 101 Carbon Dioxide 30.5 Anion Gap 4.5 BUN 19 H Creatinine 0.9 Estimated GFR/1.73 m2 >= 60.00 Glucose 96 Calcium 8.8 Urine Legionella Ag Negative
[2022-06-02] VITALS (12 sets, daily range): BP systolic 114–130; BP diastolic 64–75; PULSE 74–86; RESP 2–18; TEMP 36.8–38; O2SAT 89–94
[2022-06-02] MEDS: Normal Saline Flush 10 ML SYR IVP ×4 (01:34→20:27)
[2022-06-02] MEDS: PIPERACILLIN/TAZO 3.375 GM in Normal Saline 50 ML IVPB ×4 (01:34→20:27)
[2022-06-02 06:07] LABS: Abs Immature Grans 0.14 10^3/uL (0.0-0.06); Absolute Eosinophil Count 0.53 10^3/uL (0.0-0.7); Absolute Monocyte Count 1.15 10^3/uL (0.1-0.8); Absolute Neutrophil Count 15.98 10^3/uL (1.2-6.7); Basophils % 0.5; Eosinophils % 2.6; HCT 29.1 % (40.0-50.0); HGB 9.8 g/dL (13.5-17.5); Immature Grans % 0.7; Lymphocytes % 11.4; MCH 30.2 pg (27.0-33.0); MCHC 33.7 % (32.0-36.0); MCV 90 fL (80-95); MPV 9.5 fL (8.0-11.0); Monocytes % 5.7; Neutrophils % 79.1; Platelet Count 611 10^3/uL (130-400); RBC 3.24 10^6/uL (4.36-5.78); RDW 13.9 % (11.8-14.1); RDW-SD 45.5 fL
[2022-06-02] MEDS: Albuterol/Ipratropium 3 ML UPD VIAL UPD ×4 (08:05→20:27)
[2022-06-02] MEDS: Normal Saline 500 ML 30 ML IV (08:07)
[2022-06-02] MEDS: dilTIAZem CD 120 MG CAPCR 240 MG PO (08:08)
[2022-06-02] MEDS: guaiFENesin 600 MG TABCR PO ×2 (08:09→20:27)
[2022-06-02] MEDS: Benzonatate 200 MG CAP PO ×3 (08:09→20:27)
[2022-06-02] MEDS: Allopurinol 100 MG TAB PO (08:09)
[2022-06-02] MEDS: Tolterodine 2 MG CAPCR PO (08:09)
--- NOTE | 2022-06-02 09:16 | PDOC.CMPRO ---
- If Service Date Differs Date of service: 06/02/22 Time of Service: 09:16 Care Management Progress Note S/O: Pedro is on IV abx, neb tx and cough meds. His WBC is being closely monitored. He currently has a temp of 38.0 C and 90% on 1L NC. RN aware. A:72 year old male admitted to [facility] on 05/30/22 for Community Acquired Pneumonia P: Anticipate, Pedro will discharge home with no additional services. He will follow up with his PCP and plan of care as prescribed and transport via private vehicle with family. CM continues to follow.
[2022-06-02] MEDS: Acetaminophen 325 MG TAB PO (14:59)
[2022-06-02 15:22] LABS: Streptococcus Pneumoniae Ag, U Negative (Negative)
--- NOTE | 2022-06-02 16:33 | W.PM.PROGNOT ---
Date of Service Date of service: 06/02/22 Time of Service: 16:35 Assessment and Plan Assessment and plan (1) Pneumonia: Status: Acute Assessment and plan: Blood cultures continue to be no growth. Sputum grew jeannie albicans. His WBC count had started to trend downward so levaquin and Zosyn were stopped and rocephin started. However, WBC count then increased so is now back on Zosyn. Clinically better. WBC count modestly trending downward. Supplemental O2 needs improving. (2) Hemoptysis: Status: Acute Assessment and plan: No current hemoptysis. (3) Pleuritic chest pain: Status: Acute Assessment and plan: Continue Tussionex for his cough and apply lidocaine patches. Left-sided pleuritic chest pain continues to improve. (4) Weight loss: Status: Acute Assessment and plan: Given his history of urethral cancer and prostate cancer and 20 pound weight loss over the past month that was involuntary this raises suspicion that he has metastatic cancer. Patient should have OP CT of his abdomen and pelvis. However, if infiltrates are not improving then would repeat CT of chest along w/ images of abdomen and pelvis (5) Hypertension: Status: Chronic Assessment and plan: Continue home dose of diltiazem CD (6) Jeannie infection, oral: Status: Acute Assessment and plan: Sputum cx grew jeannie albicans. Likely thrush, doubt etiology of his pneumonia. Diflucan 100mg daily for 3 days. Subjective Subjective Patient reports: no new complaints, feels better and afebrile; denies nausea, vomiting or shortness of breath (ambulates to toilet and back w/o SOA on RA.) Exam Narrative Exam Narrative: Gen: conversational. Lying supine in bed with NC in place. Lungs: Diminished breath sounds. Nonlabored breathing. Heart: regular rate and rhythm Abdomen: soft NT, ND Extremities without edema or cyanosis. Objective Last Vital Signs Temp 38.0 C H 06/02/22 14:59 Pulse 81 06/02/22 16:24 Resp 16 06/02/22 16:24 BP 128/69 06/02/22 14:55 Pulse Ox 91 L 06/02/22 16:24 Laboratory Results - last 24 hr 06/02/22 05:34 WBC 20.20 H RBC 3.24 L Hgb 9.8 L Hct 29.1 L MCV 90 MCH 30.2 MCHC 33.7 RDW 13.9 Plt Count 611 H MPV 9.5 Immature Gran % 0.7 Neutrophils % 79.1 Lymphocytes % 11.4 Monocytes % 5.7 Eosinophils % 2.6 Basophils % 0.5 Nucleated RBC % 0.0 Absolute Neutrophils 15.98 H Absolute Lymphocytes 2.30 Absolute Monocytes 1.15 H Absolute Eosinophils 0.53 Absolute Basophils 0.10
[2022-06-03] MEDS: PIPERACILLIN/TAZO 3.375 GM in Normal Saline 50 ML IVPB (01:28)
[2022-06-03] MEDS: Normal Saline Flush 10 ML SYR IVP ×2 (01:28→08:57)
[2022-06-03 02:31] VITALS: BP 126/71; PULSE 90; RESP 14; TEMP 37.5; O2SAT 89
[2022-06-03 06:47] VITALS: BP 123/73; PULSE 76; RESP 20; TEMP 36.5; O2SAT 92
[2022-06-03 06:53] LABS: Absolute Basophil Count 0.11 10^3/uL (0.0-0.2); Basophils % 0.7; Eosinophils % 2.6; HCT 28.8 % (40.0-50.0); HGB 9.8 g/dL (13.5-17.5); Immature Grans % 0.6; Lymphocytes % 12.7; MCH 29.8 pg (27.0-33.0); MCV 88 fL (80-95); MPV 8.9 fL (8.0-11.0); Monocytes % 6.1; Neutrophils % 77.3; Platelet Count 710 10^3/uL (130-400); RBC 3.29 10^6/uL (4.36-5.78); RDW 13.9 % (11.8-14.1); RDW-SD 44.2 fL; WBC 15.85 10^3/uL (4.4-10.8)
[2022-06-03 07:00] LABS: Absolute Eosinophil Count 0.41 10^3/uL (0.0-0.7); Absolute Lymphocyte Count 2.01 10^3/uL (1.2-3.4); Absolute Monocyte Count 0.97 10^3/uL (0.1-0.8); Absolute Neutrophil Count 12.25 10^3/uL (1.2-6.7)
[2022-06-03 07:11] LABS: Diff Comment Diff Reviewed; RBC Morphology Normal
[2022-06-03] MEDS: Fluconazole 100 MG TAB PO (08:58)
[2022-06-03] MEDS: guaiFENesin 600 MG TABCR PO (08:58)
[2022-06-03] MEDS: Benzonatate 200 MG CAP PO (08:58)
[2022-06-03] MEDS: dilTIAZem CD 120 MG CAPCR 240 MG PO (08:58)
[2022-06-03] MEDS: Tolterodine 2 MG CAPCR PO (08:58)
[2022-06-03] MEDS: Allopurinol 100 MG TAB PO (08:59)
[2022-06-03 09:39] VITALS: PULSE 76; RESP 20; RESP 8; O2SAT 92
[2022-06-03] MEDS: Albuterol/Ipratropium 3 ML UPD VIAL UPD (09:39)
[2022-06-03 09:40] VITALS: PULSE 78; RESP 20; RESP 8; O2SAT 95
[2022-06-03 10:07] VITALS: PULSE 72; PULSE 76; PULSE 93; PULSE 94; RESP 18; RESP 20; RESP 22; O2SAT 87; O2SAT 90; O2SAT 92
--- NOTE | 2022-06-03 11:21 | CMDISCH_ITS ---
- If Service Date Differs Date of service: 06/03/22 Time of Service: 11:21 LACE Index Scoring Tool - Questions: Length of Stay (in days): 3 Acuity (Admit via E.D.?): Yes E.D. Visits: 2 - Answers: Total Score: 8 Risk of Readmission: Low Risk Care Management Discharge Reason for Hospitalization: Community Acquired Pneumonia Discharge Plan: Pedro is discharged home via private vehicle with family. New RX for Augmentin is transmitted to [facility]. No new [facility] services are needed at time of discharge. Pedro will call his PCP office tomorrow to scheduled a follow up appointment within the next 1-2 weeks. Pedro will follow his discharge plan of care as prescribed. Patient/Family Education Needs: Review discharge instructions, limitations, medications and plan to follow up with community providers. ask me three.
[2022-06-03 11:37] VITALS: BP 112/67; PULSE 88; RESP 18; TEMP 37.5; O2SAT 91
--- NOTE | 2022-06-03 12:27 | W.PM.DS.N ---
Date of service: 06/03/22 Time of Service: 12:27 DS: Diagnosis Discharge Diagnosis (1) Pneumonia: Status: Acute (2) Hemoptysis: Status: Acute (3) Pleuritic chest pain: Status: Acute (4) Weight loss: Status: Acute (5) Hypertension: Status: Chronic (6) Jeannie infection, oral: Status: Acute Discharge Plan Disposition Patient Disposition: HOME Condition: Improving Discharge Details Reason For Visit: community acquired pneumonia, hypoxia Admit Date/Time: 05/31/22 11:28 Admit Provider: Carmelo Michel Attending Provider: Carmelo Michel Primary Care Provider: Jennifer,[place] Hospital Course Hospital Course: 72-year-old male former smoker quit smoking 30 years ago who has a history of prostate cancer status post prostatectomy and subsequent radiation treatment presents emergency department with a 1 week history of increasing shortness of breath and 3-day history of left-sided pleuritic chest pain and 1 day history of hemoptysis.? Patient is fully vaccinated against COVID and is had both booster shots.? He took a COVID test at home that was negative.? He was seen in his PCP office in [facility] 3 days ago and started on Levaquin 500 mg daily.? In spite of this he has had worsening cough and dyspnea and now new onset hemoptysis. When he started with a hemoptysis he called his PCP office and was referred to the emergency department.? Work-up included chest x-ray and CT scan of the chest.? Chest x-ray revealed left lower lobe pneumonia.? He underwent CTA of his chest to rule out a pulmonary embolus and this showed severe left lower lobe pneumonia with additional infiltrates in the lingula.? No PE.? No pleural effusion.? Laboratory studies were consistent with pneumonia he had a white count of 31,000.? He has a mild anemia with a hemoglobin 11.6 g hematocrit 34%.? He has a leftward shift and his white cell count with 27,000 polys.? Blood lactate was mildly elevated at 1.6 chemistry panel was remarkable for mild elevation of his liver enzymes with an AST of 54 alkaline phosphatase 144 and high CRP of greater than 25 and a procalcitonin level of 0.4.? Troponin I was less than 50. On arrival to the emergency department his temperature was 36.9 his pulse oximetry demonstrated a an SPO2 of 92% but at times would drop down to 88%.? He was placed on supplemental oxygen at 1 L/min per nasal cannula which is kept his oxygen saturation in the mid 90s.? Rest of his vital signs are stable.? Nancy Klein from our ED department discussed the case with me and we felt that he be best served as an observation for parenteral antibiotics and bronchodilators and cultures.? Blood cultures were obtained in the emergency department I have ordered sputum culture and sputum for mycoplasma.? Zosyn has been added to his antibiotic regimen he will be continued on Levaquin.? Additional history from the patient reveals he has been having night sweats and has had about a 20 pound weight loss over the past month raising some concern for possible malignancy.? I shared this concern with the patient but explained that everything is pointing more towards a pneumonia and at this point we will treat it like pneumonia with broad-spectrum IV antibiotics and see how he does. He clinically gradually improved. When his WBC count was trending downward he was transitioned to ceftriaxone only for antibiotic coverage. However, the WBC count trended upward after that so he was switch back to Zosyn (no Levaquin) and his WBC count improved again. His supplemental O2 demands improved and he minimally qualified for supplemental oxygen when ambulating (1L only). No supplemental requirement at rest. However, he has no formal dx that would qualify him. He did feel comfortable and not SOB with ambulation. He will complete a course of antibiotics with Augmentin 875 mg BID for 5 more days. He should have a f/u scan in 2-3 months to watch for clearing of the dense pneumonia given some concern for a possible obstructing process. PCP f/u in 1-2 weeks. Home Meds and New Rx's Prescriptions: New amoxicillin-pot clavulanate 875-125 mg tablet 1 tab PO BID Qty: 10 0RF Rx Instructions: first dose jose, 06/03. Continued oxybutynin chloride 10 mg tablet extended release 24hr 10 mg PO DAILY diltiazem HCl 240 mg capsule,extended release 24hr 240 mg PO DAILY allopurinol 100 MG tablet 100 mg PO DAILY naproxen sodium [Aleve] 220 MG tablet 2 tab PO PRN PRN tolterodine 2 mg capsule,extended release 24hr 1 cap PO DAILY Label Comments: TAKE ONE CAPSULE BY MOUTH EVERY DAY Discontinued levofloxacin 500 mg tablet 1 tab PO DAILY Label Comments: TAKE ONE TABLET BY MOUTH EVERY DAY FOR 10 DAYS Discharge Instructions Instructions: Community Acquired Pneumonia (GEN), Return to Work Instructions (DC) Stand Alone Forms: Nursing Discharge Form Referrals: Stephany Rodriguez [Primary Care Provider] - (Please call to make a follow up appointment for 1-2 weeks.) Activity:: Activity as Tolerated Equipment/Supplies:: No Equipment Needed Diet:: Resume usual home diet. Discharge Orders Discharge Orders: Discharge Order (Routine); Ordered 06/03/22 Ordered By: Laureano Maya Discharge Data Discharge Date/Time-TO BE ENTERED AT DEPARTURE: 06/03/22 13:36 DS: Summary Time Spent with Patient providing and/or coordinating discharge services: Greater than 30 minutes Status at Discharge Functional status at discharge: independent ambulation Overall status at discharge: patient is progressing back to baseline Mental Status: mental status grossly normal Speech and Movement: speech and movement normal Mood: congruent mood Affect: normal affect Exam Narrative Exam Narrative: Gen: conversational. Lying supine in bed. Using no supplemental O2. Lungs: Diminished breath sounds. Nonlabored breathing. Heart: regular rate and rhythm Abdomen: soft NT, ND Extremities without edema or cyanosis. Psych Mental Status: mental status grossly normal Speech and Movement: speech and movement normal Mood: congruent mood Affect: normal affect DS: Data Vitals/I&O Vitals and I&O: Vital Signs Temperature 37.5 C 06/03/22 11:37 Temperature Source Tympanic 06/03/22 11:37 Pulse 88 06/03/22 11:37 Pulse Rhythm Regular 06/03/22 11:50 Pulse 78 05/29/22 14:40 Respiratory Rate 18 06/03/22 11:37 Respiratory Effort Non-Labored 06/03/22 11:50 Respiratory Depth Normal 06/03/22 11:50 Respiratory Pattern Normal 06/03/22 11:50 Blood Pressure 112/67 06/03/22 11:37 Blood Pressure Mean 78 05/29/22 14:31 Blood Pressure Position Sitting 05/29/22 11:27 Pulse Oximetry 91 L 06/03/22 11:37 Oxygen Delivery Method Room Air 06/03/22 11:37 Oxygen Flow Rate 0 06/03/22 11:37 Pain Level 0 06/03/22 11:37 Comment 06/02/22 14:55 Intake & Output 07/06/03/22 06/03/22 23:59 11:59 23:59 Intake Total 460 / 656.5 450 / 450 Output Total 400 / 1100 1000 / 1000 Balance 60 / -443.5 -550 / -550 Weight 72.9 kg Intake: IV 100 / 296.5 50 / 50 Oral 360 / 360 400 / 400 Output: Urine 400 / 1100 1000 / 1000 Other: Urine Color Yellow Yellow Urine Appearance Clear Clear Urine Odor Normal Normal Voiding Methods Toilet Toilet Data Completed and Pending Labs on day of discharge: Labs from last 24 hours 06/03/22 05/29/22 05/29/22 06:14 20:45 16:34 WBC 15.85 H RBC 3.29 L Hgb 9.8 L Hct 28.8 L MCV 88 MCH 29.8 MCHC 34.0 RDW 13.9 Plt Count 710 H MPV 8.9 Immature Gran % 0.6 Neutrophils % 77.3 Lymphocytes % 12.7 Monocytes % 6.1 Eosinophils % 2.6 Basophils % 0.7 Nucleated RBC % 0.0 Absolute Neutrophils 12.25 H Absolute Lymphocytes 2.01 Absolute Monocytes 0.97 H Absolute Eosinophils 0.41 Absolute Basophils 0.11 RBC Morphology Normal M. pneumoniae Source Cancelled M. pneumoniae (PCR) Cancelled Ur Strep pneumoniae Ag Negative Preliminary micro results at discharge 05/31/22 13:25 Blood Culture - Preliminary Blood NO GROWTH 48 HOURS 05/31/22 13:18 Blood Culture - Preliminary Blood NO GROWTH 48 HOURS 05/29/22 12:45 Blood Culture - Preliminary Blood NO GROWTH 96 HOURS 05/29/22 12:00 Blood Culture - Preliminary Blood NO GROWTH 96 HOURS PFSH All Active Problems Jeannie infection, oral (Acute) Weight loss (Acute) Pleuritic chest pain (Acute) Hemoptysis (Acute) Status post prostatectomy (Acute) Pneumonia (Acute) Primary osteoarthritis of right knee (Acute) Colon polyp (Acute) Hypertension (Chronic) Urethral cancer (Acute) Medical History Bilateral cataracts Constipation Gout Prostate cancer Family History Father , age 70's; unknown cause No problems noted. Mother , age 74; unknown cause No problems noted. Brother , age 74, unknown cause No problems noted. Sister , age 76, unknown cause No problems noted. Social History Smoking/Tobacco Use Status: Former Tobacco Use Quit Date: 05/29/22 Tobacco: How many years used: 26 Smoking risk assessment performed?: Yes Alcohol Intake: former Drug use: Never Do you feel safe at home: Yes Do you feel safe in your relationship?: Yes
== END 2022-06-03 13:36 | disposition home or self-care (01) | DRG 194 ==
LOC: ER 14:49 → MS 14:56
PROVIDERS: Family Medicine; Admitting Provider Internal Medicine; Emergency Provider Registered Nurse Emergency; PCP Family Medicine; Visit Provider Internal Medicine
DX: J18.9 Pneumonia, unspecified organism (principal); B37.0 Candidal stomatitis; R04.2 Hemoptysis; R63.4 Abnormal weight loss; Z68.24 Body mass index [BMI] 24.0-24.9, adult; I10 Essential (primary) hypertension; Z87.891 Personal history of nicotine dependence; Z85.46 Personal history of malignant neoplasm of prostate; Z85.59 Personal history of malignant neoplasm of other urinary tract organ; D64.9 Anemia, unspecified; R07.81 Pleurodynia; M17.11 Unilateral primary osteoarthritis, right knee
CPT/HCPCS: 36410; 36415; 71275; 80048; 80053; 84145; 87040; 87081; 87449; 87635; 93005; 94618; 96361; 96365; 99285; 83605; 83735; 84484; 85014; 85018; 85025; 86140; 87070; 87205; 87581; 87899; 93010; 94640; 99219; 99225; 99232; 99239; J1956; J2543; J3490; J7620

== ENCOUNTER → 2022-08-24 14:51 | Outpatient (BNVA) | payer MEDICARE, OTHER, SELFPAY | PROVIDERS: PCP Family Medicine; Referring Provider Family Medicine; Visit Provider Student in an Organized Health Care Education/Training Program | DX: M17.11 Unilateral primary osteoarthritis, right knee (principal) | CPT/HCPCS: 20610; J1040 ==

== ENCOUNTER 2022-09-07 12:29 | Emergency (ER) | payer MEDICARE, OTHER, SELFPAY ==
[2022-09-07] VITALS (25 sets, daily range): BP systolic 163–174; BP diastolic 88–99; PULSE 60–88; RESP 8–28; TEMP 36.7; O2SAT 94–98
--- NOTE | 2022-09-07 13:30 | DI.CT_ITS ---
Exam(s) CT CHEST/ABD/PEL W EXAM: CT CHEST/ABD/PEL W CLINICAL HISTORY: LUQ pain, BRBPR. TECHNIQUE: Imaging Protocol: Axial computed tomography images with coronal and sagittal reformatted images were created and reviewed CONTRAST MATERIAL: Intravenous: Omnipaque 350 Contrast volume:100 ml Oral: no COMPARISON: CT CT CHEST PE CTA from 05/29/2022 FINDINGS: CHEST: Tracheobronchial tree: Patent where visualized. Bronchiectasis superior segment of left lower lobe medially. Mediastinum and Bekah: No dominant adenopathy or fluid collection. Pulmonary parenchyma: Emphysematous changes. Improvement in left lower lobe infiltrate with residual scarring and volume loss. Scarring is also seen in the lingula. The on the weight head of serious pneumonia left lung looks almost completely cleared but does have some dad is looks slightly is still some nodular ES a nodular scarring left there but nothing acute on standing views severe diverticulo sis bone seen diverticulitis is nonobstructing stones in the lower pole of the left kidney but no hyd ro from the there band in no apparent none nail the rib fracture is bone in gas in the opercular 8 Pleura: No effusion or pneumothorax. Lymph nodes: Within normal limits. Aorta: Thoracic portion non-dilated. Atherosclerotic changes. Heart: Coronary artery calcifications. Heart size normal. Bones: Unremarkable for age. No lytic or blastic lesions. ABDOMEN: Liver: Normal density. No measurable mass. Gallbladder and biliary tract: No radiodense calculus or dilation. Pancreas: Normal density, no abnormal calcifications or inflammatory process. Spleen: Normal. Kidneys: Normal size, contour and axis. Large nonobstructing pony stones mid to lower pole left kidn ey. Small bilateral cysts. No masses seen. Adrenal glands: No masses seen. Aorta: Abdominal portion non-dilated. Atherosclerotic changes. Lymph nodes: Within normal limits. Soft tissues: Unremarkable. PELVIS: Bladder: Symmetric distention, no gross wall thickening. Bowel: Diverticulosis descending and sigmoid colon. Severe diverticulosis in the sigmoid region but no surrounding inflammation or evidence of perforation or abscess. No mass is visible. No obstructi on or bowel wall thickening. Peritoneal cavity: No ascites, collection or mesenteric inflammatory response. Bones: Unremarkable for age.. Reproductive organs: Status post prostatectomy. IMPRESSION: Significant improvement in the left lower lobe pneumonia with residual atelectasis and bronchiectasi s. There is a nodular area of scarring. Further follow-up chest CT is recommended. Diverticulosis is severe in the sigmoid region. There is no evidence of diverticulitis. Nonobstructing stones are noted at the lower pole of the left kidney. Results of this exam have been verbally communicated with the emergency department provider. RADIATION DOSE DELIVERED: Total DLP DATA REPOSITORY: All CT scans at this facility are submitted to the National Radiology Data Registry (NRDR) Dose Index Registry (DIR) with the [employer] (ACR). RADIATION OPTIMIZATION: All CT scans at this facility use at least one of these dose optimization te chniques: automated exposure control; mA and/or kV adjustment per patient size (includes targeted exa ms where dose is matched to clinical indication); or iterative reconstruction.
--- NOTE | 2022-09-07 13:39 | ED.GENADUL_ITS ---
Discharge Plan Disposition Patient Disposition: HOME Condition: Stable Discharge Details Clinical Impression: Diverticulosis of intestine with bleeding, BRBPR (bright red blood per rectum), Contusion of rib, Elevated blood pressure reading Primary Care Provider: Stephany Rodriguez ED Provider: Yahaira Baca Home Meds and New Rx's Prescriptions: Continued oxybutynin chloride 10 mg tablet extended release 24hr 10 mg PO DAILY diltiazem HCl 240 mg capsule,extended release 24hr 240 mg PO DAILY allopurinol 100 MG tablet 100 mg PO DAILY naproxen sodium [Aleve] 220 MG tablet 2 tab PO PRN PRN tolterodine 2 mg capsule,extended release 24hr 1 cap PO DAILY Label Comments: TAKE ONE CAPSULE BY MOUTH EVERY DAY Discharge Instructions Instructions: Diverticulosis (ED), Rib Contusion (ED) Additional Instructions: Imaging was concerning for diverticulosis as we discussed. There is no evidence of infection. This is likely what is causing the right bright red blood per rectum. Please encourage hydration. Please try to keep stools softer with water and fiber. You will need a colonoscopy and have been referred to our general surgery team to schedule follow-up for this. Your left lower rib pain is not associate with fracture. However, I am concerned that this is inflammation or strain. Particularly she did recently have pneumonia I would like you to use the incentive spirometer throughout the course of the day and encourage deep breathing. If you develop fever/chills, shortness of breath, difficulty breathing, lightheadedness, increased bleeding or other new/worsening symptoms care urgently with again. Otherwise, please keep your upcoming appoint with your primary care provider. You may use Tylenol and/or Lidoderm patch to help with the rib discomfort. Referrals: Stephany Rodriguez [Primary Care Provider] - Angella Paniagua MD [ [facility] STAFF PHYSICIAN] - Discharge Data Discharge Date/Time-TO BE ENTERED AT DEPARTURE: 09/07/22 16:40 Medical Decision Making Patient pleasant 72-year-old male, accompanied by his , with chief complaint of left-sided chest pain and bright red blood per rectum. He reports a few dais ago he was working on his lawn tractor when he was lifting something and accidentally injured the left lower lateral chest wall. He did not actually fall during this time. Since that time, his pain has persisted. States that he has pain with deep breathing, feel like he is breathing more shallow. Denies any fevers or chills. States the pain can radiate into the left upper quadrant. He states on the same day, he began having bright red blood per rectum. He has not had this historically. He denies easy bruising, bleeding gums with brushing, hematuria. Denies any history of hemorrhoids. He denies feeling dizzy or lightheaded. States that over the past 3 days, he has been having 1 normal bowel movement per day that has bright red blood mixed with stool as well as in the toilet and on the paper. He has not anticoagulated. Down the on exam, patient appears nontoxic. He is hemodynamically stable. He has no conjunctival pallor, no petechial rash or intraoral rash. Lungs are clear, normal cardiac exam. He is focally tender and the left lower chest wall. He also has pain in the left upper quadrant. No CVA tenderness. 2+ distal pulses. Rectal exam significant for bright red blood per rectum. Abdomen is otherwise benign with no tenderness in the left lower quadrant. All the patient's symptoms of left lower chest pain as well as bright red blood per rectum began on the same day, I have a hard time linking these based on the area of discomfort and mechanism of trauma. I am concerned for potential rib fracture and patient also has some left upper quadrant discomfort which may be associated with his recent trauma. Patient reports that he does have a history of prostate cancer. He has not had routine colonoscopies. Given his history, I am concerned for potential recurrence of his cancer. Also considered nonpalpable bleeding internal hemorrhoid, diverticulosis versus other. He does not have any indications at this time for coagulopathy. We will treat his discomfort with Tylenol, morphine and a Lidoderm patch. Will obtain CT scan for further evaluation of the abdominal/chest wall discomfort as well as bleeding. Labs reviewed. No leukocytosis. H&H is stable. Patient does have history of chronic anemia. Coags are normal. CMP without significant abnormality. Lipase within normal limits. Urine shows trace blood but otherwise negative. We will have him follow-up with his primary care regarding this trace blood although this has been present historically for him. Contacted by the radiologist who advised that patient has improving left lower lobe pneumonia with no acute abnormality. Diverticulosis is noted in the sigmoid colon with no evidence of acute diverticulitis. Nonobstructing stone in the left lower pole of the kidney, this could be accounting for some of the blood in his urine. Discussed these findings with the patient and his . I did consult with general surgery and advised that patient will likely require colonoscopy, particularly given his history of prostate cancer for further evaluation of his bright red blood per rectum. At this time, patient is not actively he morrhaging, no drop in his hemoglobin and patient is not having more than 1 bowel movement per day. In regard to the chest wall pain, no indication of fracture or acute traumatic etiology at this time. Likely contusion. Particularly as he did recently have pneumonia, will send him home with incentive spirometer. Encourage deep breathing. We discussed symptom management. Return precautions were discussed. In particular, symptoms of worsening bleeding. Encourage close follow-up with primary care. All his questions and concerns were addressed and he is agreement this plan. [facility] General Date/Time Provider Initiated Documentation: 09/07/22 13:39 . Limitations to Documentation: no limitations . Information obtained by: patient, family and RN notes reviewed . History of Present Illness 72 year old M presents to the emergency department with the chief complaint of left sided chest pain, BRBPR, described as moderate, with intensity rated at 7. Quality is described as aching, and is localized to the chest. Patient reports no radiation. Patient started experiencing this day(s) and it has been constant. Immobilization improves symptom(s), Movement worsens symptoms . Patient notes shortness of breath (shallow breaths with the left sided chest pain); denies chest pain, cough, diaphoresis, fever/chills, loss of appetite, malaise, nausea/vomiting and rash. Patient did receive the following treatments prior to arrival, none Related Data Home Medications Medication Instructions Recorded Confirmed allopurinol 100 mg tablet 100 mg PO DAILY 05/18/15 09/07/22 naproxen sodium 220 mg tablet 2 tab PO PRN PRN 01/15/16 09/07/22 (Aleve) diltiazem HCl 240 mg 240 mg PO DAILY 04/07/22 09/07/22 capsule,extended release 24 hr oxybutynin chloride 10 mg 10 mg PO DAILY 04/07/22 09/07/22 tablet,extended release 24 hr tolterodine 2 mg capsule,extended 1 cap PO DAILY 05/29/22 09/07/22 release 24 hr Allergies Allergy/AdvReac Type Severity Reaction Status Date / Time No Known Allergies Allergy Verified 09/07/22 12:37 General Stated Complaint: GenMedical LORI: 3 Review of Systems Constitutional Constitutional: Reports as per HPI, Denies chills, Denies fever(s), Denies headache(s), Denies lethargy and Denies poor appetite Eyes Eyes: Denies change in vision ENT Ears, Nose, Mouth, and Throat: Denies dizziness and Denies headache(s) Cardiovascular Cardiovascular: Reports as per HPI Respiratory Respiratory: Reports as per HPI, Denies chest congestion and Denies cough Gastrointestinal Gastrointestinal: Reports as per HPI Genitourinary Genitourinary: Denies system reviewed and no additional complaints, except as documented (denies change in urinary habits) Musculoskeletal Musculoskeletal: Reports as per HPI and Denies back pain Integumentary/Breasts Skin/Breast: Reports as per HPI and Denies rash Neurologic Neurologic: Reports as per HPI, Denies dizziness and Denies headache(s) PFSH All Active Problems (Updated 09/07/22 @ 15:58 by WENCESLAO Valencia) Diverticulosis of intestine with bleeding (Acute) BRBPR (bright red blood per rectum) (Acute) Contusion of rib (Acute) Elevated blood pressure reading (Acute) Weight loss (Acute) Status post prostatectomy (Acute) Pneumonia (Acute) Primary osteoarthritis of right knee (Acute) Steroid injection: 08/24/2022; 05/18/2022 Colon polyp (Acute) Hypertension (Chronic) Urethral cancer (Acute) Medical History Bilateral cataracts Constipation Gout Prostate cancer Family History Father , age 70's; unknown cause No problems noted. Mother , age 74; unknown cause No problems noted. Brother , age 74, unknown cause No problems noted. Sister , age 76, unknown cause No problems noted. Social History Smoking/Tobacco Use Status: Former Tobacco Use Quit Date: 05/29/22 Tobacco: How many years used: 26 Smoking risk assessment performed?: Yes Alcohol Intake: former Drug use: Never Substance use type: does not use Do you feel safe at home: Yes Do you feel safe in your relationship?: Yes Exam Const General: cooperative, healthy appearing, comfortable, no acute distress and well developed Nutritional Appearance: average body habitus and well nourished Orientation: alert, awake and oriented x3 [facility] Head: normal to inspection Ears: hearing grossly normal bilaterally Mouth: moist mucous membranes Eyes Conjunctivae: conjunctivae normal (no palor) Chest Chest: normal inspection of the chest, normal palpation of entire chest wall, no crepitus and tenderness (left lower lateral chest wall) Resp Effort & Inspection: normal respiratory effort, able to speak in complete sentences and no respiratory distress Auscultation: clear to auscultation bilaterally, no rales, no rhonchi and no wheezes Cardio Rate: regular rate Rhythm: regular rhythm Heart Sounds: S1 normal and S2 normal GI Inspection: normal to inspection, no edema and non-distended Palpation: soft, no hepatosplenomegaly, not firm, no guarding, not rigid and tender in the LUQ Auscultation: normal bowel sounds Rectal Exam: normal sphincter tone, heme positive stool and No hemorrhoids Back/Spine/Pelvis Back: no CVA tenderness Thoracic/Lumbar Spine: thoracic and lumbar spine normal to inspection Skin General skin exam: no rashes or lesions noted Trauma: no lacerations or abrasions Neuro General: patient alert, patient awake and patient oriented x3 Cognition: normal cognition Speech: speech normal Gait: normal gait Extrem General: normal to inspection, capillary refill normal, no pedal edema, no calf tenderness and normal gait Psych Appearance: grossly normal and well kempt Mental Status: mental status grossly normal Speech and Movement: speech and movement normal Course Vital Signs Vital signs: Vital Signs Temperature 36.7 C 09/07/22 12:34 Pulse 70 09/07/22 12:34 Respiratory Rate 17 09/07/22 12:34 Blood Pressure 163/90 H 09/07/22 12:34 Pulse Oximetry 96 09/07/22 12:34 Temperature 36.7 C 09/07/22 12:34 Temperature Source Temporal Artery Scan 09/07/22 12:34 Pulse 70 09/07/22 12:34 Pulse 79 09/07/22 13:30 Respiratory Rate 28 H 09/07/22 13:30 Respiratory Effort Non-Labored 09/07/22 12:55 Respiratory Depth Normal 09/07/22 12:55 Respiratory Pattern Normal 09/07/22 12:55 Blood Pressure 163/90 H 09/07/22 12:34 Blood Pressure Position Supine 09/07/22 12:34 Pulse Oximetry 97 09/07/22 13:30 Oxygen Delivery Method Room Air 09/07/22 12:34 Oxygen Flow Rate 0 09/07/22 12:34 Pain Level 7 09/07/22 12:34
[2022-09-07] MEDS: ACETAMINOPHEN 1,000 MG/100 ML BTL 400 MG IVPB (13:47)
[2022-09-07] MEDS: MORPHine 4 MG/ML SYR IVP (13:48)
[2022-09-07 13:58] LABS: Abs Immature Grans 0.04 10^3/uL (0.0-0.06); Absolute Basophil Count 0.06 10^3/uL (0.0-0.2); Absolute Eosinophil Count 0.27 10^3/uL (0.0-0.7); Absolute Lymphocyte Count 2.47 10^3/uL (1.2-3.4); Absolute Neutrophil Count 7.57 10^3/uL (1.2-6.7); Basophils % 0.5; Eosinophils % 2.4; HCT 38.9 % (40.0-50.0); HGB 12.5 g/dL (13.5-17.5); Immature Grans % 0.4; Lymphocytes % 21.8; MCH 29.3 pg (27.0-33.0); MCHC 32.1 % (32.0-36.0); MCV 91 fL (80-95); MPV 9.6 fL (8.0-11.0); Neutrophils % 66.9; Platelet Count 349 10^3/uL (130-400); RBC 4.26 10^6/uL (4.36-5.78); RDW 13.8 % (11.8-14.1); RDW-SD 46.4 fL; WBC 11.31 10^3/uL (4.4-10.8)
[2022-09-07 14:17] LABS: Lipase 53 U/L (73-393); Troponin I < 50 ng/L (<or=60)
[2022-09-07 14:20] LABS: PTT Activated 25.9 sec (21.0-27.5); Prothrombin Time 9.9 sec (9.3-11.0)
[2022-09-07 14:25] LABS: ALT 20 U/L (16-63); AST 13 U/L (15-37); Albumin 3.2 g/dL (3.4-5.0); Alkaline Phosphatase 71 U/L (46-116); Anion Gap 3.8 mmol/L (3-11); BUN 27 mg/dL (7-18); Bilirubin, Total 0.3 mg/dL (0.2-1.0); CO2 31.2 mmol/L (21.0-32.0); Calcium 9.7 mg/dL (8.5-10.1); Chloride 105 mmol/L (98-107); Estimated GFR 78.98 (mL/min/1.73m2); Glucose 101 mg/dL (74-106); Potassium 3.9 mmol/L (3.5-5.1); Sodium 140 mmol/L (136-145); Total Protein 7.3 g/dL (6.4-8.2)
[2022-09-07] MEDS: Normal Saline - Diluent 50 ML VIAL IV (14:53)
[2022-09-07] MEDS: Normal Saline Flush 10 ML SYR IVP (14:53)
[2022-09-07] MEDS: Omnipaque 350 MG/ML 500 ML BTL-Imaging package IJ (14:56)
[2022-09-07 15:27] LABS: Bilirubin Negative (Negative); Blood Trace-intact (Negative); Clarity Clear (Clear); Glucose Negative (Negative); Ketones Negative (Negative); Leukocyte Esterase Negative (Negative); Nitrite Negative (Negative); Specific Gravity 1.025 (1.005-1.025); Urobilinogen 0.2 EU/dL (Up TO 0.2)
[2022-09-07 15:53] LABS: RBC 0-2 HPF (0-2); WBC 0-2 HPF (0-5)
[2022-09-07 15:54] LABS: Bacteria Negative HPF (Negative); C & S Indicated? No; Crystals Negative HPF (Negative); Epithelial Cells Negative HPF (Negative); Mucus Negative (Negative)
--- NOTE | 2022-09-08 10:05 | PDOC.ERCMACT ---
- If Service Date Differs Date of service: 09/08/22 Time of Service: 10:05 Care Management Activity Note Pedro is seen in the ED for diverticulosis of intestine with bleeding. At the request of ED provider, CM coordinates a referral to [facility] to assist patient in obtaining an appointment for a colonoscopy. Pedro has Medicare and [facility] for insurance.
== END 2022-09-07 16:40 | disposition home or self-care (01) ==
PROVIDERS: Emergency Provider Physician Assistant; PCP Family Medicine
DX: K57.31 Diverticulosis of large intestine without perforation or abscess with bleeding (principal); K62.5 Hemorrhage of anus and rectum; R03.0 Elevated blood-pressure reading, without diagnosis of hypertension; S20.212A Contusion of left front wall of thorax, initial encounter; X58.XXXA Exposure to other specified factors, initial encounter
CPT/HCPCS: 36415; 74177; 80053; 83690; 96365; 96375; 99285; 71260; 81003; 81015; 83735; 84484; 85025; 85610; 85730; 99284; J0131; J2270

== ENCOUNTER → 2022-09-15 14:43 | Outpatient (BNVA) | payer MEDICARE, OTHER, SELFPAY | PROVIDERS: PCP Family Medicine; Referring Provider Family Medicine; Visit Provider Surgery | DX: K62.5 Hemorrhage of anus and rectum (principal); K57.91 Diverticulosis of intestine, part unspecified, without perforation or abscess with bleeding; K63.5 Polyp of colon; I10 Essential (primary) hypertension | CPT/HCPCS: 99203; 99243 ==

== ENCOUNTER 2022-09-28 09:15 | Day surgery (SDC) | payer MEDICARE, OTHER, SELFPAY ==
--- NOTE | 2022-09-27 18:15 | W.PM.DSUDISC ---
Date of service: 09/28/22 Time of Service: 11:09 Discharge Plan Disposition Patient Disposition: HOME Condition: Good Discharge Details Reason For Visit: colonoscopy Attending Provider: Jose Guerra Primary Care Provider: Stephany Rodriguez Home Meds and New Rx's Prescriptions: Continued oxybutynin chloride 10 mg tablet extended release 24hr 10 mg PO DAILY diltiazem HCl 240 mg capsule,extended release 24hr 240 mg PO DAILY allopurinol 100 MG tablet 100 mg PO DAILY naproxen sodium [Aleve] 220 MG tablet 2 tab PO PRN PRN tolterodine 2 mg capsule,extended release 24hr 1 cap PO DAILY Label Comments: TAKE ONE CAPSULE BY MOUTH EVERY DAY Discontinued bisacodyl [Dulcolax (bisacodyl)] 5 mg tablet,delayed release (DR/EC) 5 mg PO ONCE Qty: 4 0RF Rx Instructions: Take according to provider's instructions for colonoscopy prep. polyethylene glycol 3350 17 gram/dose powder 17 g PO ONCE Qty: 238 0RF Rx Instructions: To be taken as directed by prescriber's office for colonoscopy prep. Discharge Instructions Instructions: Diverticulosis (DC), Colorectal Polyps (DC) Additional Instructions: 1. If tolerated, consume a soft, low fiber diet for 1-2 days. 2[address] Do not drive, drink alcohol, operate machinery, make critical decisions, or do activities that require coordination or balance for 24 hours. 3. Because air was put into your colon during the procedure, expelling air from your rectum (passing gas or farting) is normal. 4. You may not have a bowel movement for 1-3 days because of the colonoscopy prep. This is normal. 5. Go directly to the emergency room if you notice any of the following: Develop chills (warm to touch), or if you have a thermometer and your temperature is above 101 Difficulty breathing or difficultly swallowing Persistent vomiting Severe abdominal pain, other than gas cramps Severe chest pain Black, tarry stools Any bleeding ? exceeding one tablespoon 6. Call your physician if the site where your intravenous was started becomes red, swollen, painful, and warm to touch. 7. Your physician has reviewed your pre-procedure medications. Please continue to take those medications as previously ordered. You will be given specific information/education regarding any changes to your medications before leaving. Activity:: Activity as Tolerated Equipment/Supplies:: No Equipment Needed Diet:: As Tolerated DS: Diagnosis Discharge Diagnosis (1) Colon polyp: Status: Acute Asessment and Plan: I will contact you with the pathology results on the polypectomy once they are available.
--- NOTE | 2022-09-27 18:17 | W.COLOREPORT ---
Date of service: 09/28/22 Time of Service: 11:10 Colonoscopy Report Date of procedure: 09/28/22 Pre-op diagnosis general: Routine health maintenance screening colonoscopy Post-op diagnosis procedure note: other (Diverticulosis, colorectal polyp) Procedure: Colonoscopy Surgeon: Jose Guerra Anesthesia Type: General:No Airway Estimated blood loss (mL): 10 Pathology: other (Polyp at 75 cm) Complications: None Disposition: same day Indications: Pedro is a 72-year-old male here for another screening colonoscopy Prep: Miralax/Dulcolax Procedure Start Time: 10:38 Procedure End Time: 10:56 Retraction Time: 12 Findings: Polyp at 75 cm, extensive sigmoid diverticulosis Procedure Description: After the induction of monitored anesthetic care, and with the patient in left lateral decubitus position, I began by performing an external anorectal exam.? Perineum and skin were normal, as was the anal verge.? There was no evidence of external hemorrhoids.? Next, I performed a digital rectal exam.? I did not appreciate any abnormal findings.? Next, I advanced a colonoscope into the rectal vault.? I performed retroflexion.? Using insufflation, I then advanced the colonoscope beyond the rectal folds and into the sigmoid colon before advancing towards the cecum.? The quality of the prep was excellent. There was extensive sigmoid diverticulosis.? The scope was noted to be in the cecum by identification of the ileocecal valve and appendiceal orifice.? I then began withdrawing the colonoscope using repeated irrigation as necessary for full evaluation of the colonic mucosa. Around 75 cm from the anal verge I identified a 0.5 cm polyp. ?It appeared sessile in character. ?I was able to remove this with a cold forceps. ?I examined the site, and there was minimal bleeding. ?Once this was completed, I continued to withdraw the scope and examine the remainder of the colonic mucosa. ?Once the scope was withdrawn to the level of the rectum, great care was taken to examine portions of the rectal folds.? Finally, the scope was withdrawn and the patient was brought to the same-day surgery recovery unit as the anesthetic wore off. ?The findings and instructions were shared with the patient prior to discharge.
[2022-09-28 09:15] VITALS: BP 149/96; PULSE 89; RESP 18; TEMP 36.3; O2SAT 96
--- NOTE | 2022-09-28 09:49 | ANES.PREOP_ITS ---
General Info Date of Service Date Performed: 09/28/22 Height: 5 ft 8 in Weight: 77 kg Body Mass Index (BMI): 25.8 Surgical Procedure: Operation Date: 09/28/22 10:35 Proposed Procedure Side Surgeon p Colonoscopy possible Polypectomy Jose Guerra MD Meds Allergies and Home Medications Allergies Allergy/AdvReac Type Severity Reaction Status Date / Time No Known Allergies Allergy Verified 09/28/22 09:37 Home Medication Medication Instructions Recorded allopurinol 100 mg tablet 100 mg PO DAILY 05/18/15 naproxen sodium 220 mg tablet 2 tab PO PRN PRN 01/15/16 (Aleve) diltiazem HCl 240 mg 240 mg PO DAILY 04/07/22 capsule,extended release 24 hr oxybutynin chloride 10 mg 10 mg PO DAILY 04/07/22 tablet,extended release 24 hr tolterodine 2 mg capsule,extended 1 cap PO DAILY 05/29/22 release 24 hr Current Visit Medications: Current Medications Generic Name Dose Route Start Last Admin Trade Name Freq PRN Reason Stop Dose Admin Hyoscyamine Sulfate 0.125 mg 09/27/22 18:17 Hyoscyamine 0.125 Mg Sl/Oral/Chew SL DIRECTED PRN Ringer's Solution 1,000 mls @ 80 mls/hr 09/28/22 06:00 IV 10/07/22 23:59 INFUSION [facility] IV Miscellaneous Supplies 1 each 09/28/22 06:00 Iv Access IV 10/07/22 23:59 DIRECTED CELINA Ondansetron HCl 4 mg 09/27/22 18:17 Ondansetron 4 Mg/2 Ml Vial IVP Q4H PRN PRN Nausea / Vomiting Sodium Chloride 0 ml 09/28/22 06:00 Normal Saline Flush 10 Ml Syr IV 10/07/22 23:59 PRN PRN Sodium Chloride 0 ml 09/28/22 06:00 Normal Saline 10 Ml Vial IJ 10/07/22 23:59 DIRECTED PRN Sterile Water 0 ml 09/28/22 06:00 Water,Injection,Sterile 10 Ml Vial IJ 10/07/22 23:59 DIRECTED PRN PFSH Active Problems Active Problems: Problem Status Onset Code 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 Hypertension I10 Colon polyp K63.5 Primary osteoarthritis of right knee M17.11 Pneumonia J18.9 Status post prostatectomy Z90.79 Weight loss R63.4 Diverticulosis of intestine with bleeding K57.91 BRBPR (bright red blood per rectum) K62.5 Contusion of rib S20.219A Elevated blood pressure reading R03.0 Former smoker Z87.[address] scan, chest R93.89 Medical History Medical History Bilateral cataracts Jeannie infection, oral Constipation Gout Prostate cancer Surgical History Surgical History H/O prostatectomy History of cataract surgery History of colonoscopy Tobacco Smoking/Tobacco Use Status: Former Tobacco Use Alcohol Alcohol Intake: former Substance Use Substance use: Never Substance use type: does not use Vital Signs and Lab Results Vital Signs Most Recent Vital Signs in EMR: Most Recent Vital Signs Temp Pulse Resp BP Pulse Ox 36.3 C L 89 18 149/96 H 96 09/28/22 09:15 09/28/22 09:15 09/28/22 09:15 09/28/22 09:15 09/28/22 09:15 Lab Results Blood Type / Crossmatch: No Data to Display Complete Blood Count: White Blood Count 11.31 10^3/uL (4.4-10.8) H 09/07/22 13:15 Red Blood Count 4.26 10^6/uL (4.36-5.78) L 09/07/22 13:15 Hemoglobin 12.5 g/dL (13.5-17.5) L 09/07/22 13:15 Hematocrit 38.9 % (40.0-50.0) L 09/07/22 13:15 Platelet Count 349 10^3/uL (130-400) 09/07/22 13:15 Complete Metabolic Panel: Sodium 140 mmol/L (136-145) 09/07/22 13:15 Potassium 3.9 mmol/L (3.5-5.1) 09/07/22 13:15 Chloride 105 mmol/L (98-107) 09/07/22 13:15 Carbon Dioxide 31.2 mmol/L (21.0-32.0) 09/07/22 13:15 BUN 27 mg/dL (7-18) H 09/07/22 13:15 Creatinine 1.0 mg/dL (0.70-1.30) 09/07/22 13:15 Est GFR (CKD-EPI 2020) 78.98 (mL/min/1.73m2) 09/07/22 13:15 Magnesium 2.0 mg/dL (1.8-2.4) 09/07/22 13:15 Calcium 9.7 mg/dL (8.5-10.1) 09/07/22 13:15 Albumin 3.2 g/dL (3.4-5.0) L 09/07/22 13:15 Glucose 101 mg/dL (74-106) 09/07/22 13:15 Liver Function Panel: Alanine Aminotransferase (ALT/SGPT) 20 U/L (16-63) 09/07/22 13: 15 Aspartate Amino Transf (AST/SGOT) 13 U/L (15-37) L 09/07/22 13: 15 Coagulation Panel: INR International Normalized Ratio 1.0 (0.9-1.1) 09/07/22 13:1 5 Prothrombin Time 9.9 sec (9.3-11.0) 09/07/22 13:15 Activated Partial Thromboplast Time 25.9 sec (21.0-27.5) 13:15 Cardiac Panel: Troponin I < 50 ng/L (<or=60) 09/07/22 Arterial Blood Gas: No Data to Display Venous Blood Gas: No Data to Display Pancreas Panel: Lipase 53 U/L (73-393) 09/07/22 13:15 Thyroid Panel: No Data to Display Infectious Disease: No Data to Display Blood Cultures: No Data to Display Toxicology Panel: No Data to Display Imaging and Studies Imaging and Studies Study information below may be from another EMR and interpreted by another provider. Please see original notes in EMR for more complete details. EKG Summary: Conclusion Sinus or ectopic atrial rhythm...P axis (-45,135) 05/29/22 Anesthesia Assessment and Plan Anesthesia History Personal History: No History of Anesthesia Complications Family History: No Family History of Anesthesia Complications Exercise Tolerance Exercise Tolerance: Metabolic Equivalents>4 Pertinent Negatives Pertinent Negatives: No Symptoms of GERD, No Major Cardiovascular Symptoms or Complaints, No Major Pulmonary Symptoms or Complaints and No History of CVA/TIA Cardiac & Pulmonary Exam Cardiac Exam: Normal S1/S2 Heart Sounds Pulmonary Exam: Clear Bilateral Breath Sounds Implantable Cardiac Device Does patient have a Pacemaker or an ICD?: No Airway Exam Known Difficult Airway: No Mallampati Class: 2 Mouth Opening: Normal (> 3cm) Thyromental Distance: Greater than 3 cm Neck Range of Motion: Full ROM Neck Circumference: Normal Teeth Condition: Generalized Poor Dentition and Loose or Chipped (Left upper molar very loose, patient aware there is a possibility it could be dislodged if airway intervention is needed. ) ASA Classification ASA Score: ASA 2 Emergency Case?: No NPO Status NPO Status: NPO Clears >2 hours, Solids >8 hours Anesthesia Plan Resuscitation Status: Full Code Anesthesia Technique: General Anesthesia Airway Planned: Natural Airway Monitors Used: Standard Monitors
[2022-09-28 09:52] VITALS: BMI 25.8
[2022-09-28] MEDS: Lactated Ringers 1,000 ML 80 ML IV (09:54)
--- NOTE | 2022-09-28 10:50 | BOWEL_PTH ---
PATIENT: Pedro Arana LOC: [facility] U#:[id number] AGE/SX: 72/M ROOM: RE09/28/[address]: Jose Guerra MD : [id number] BED: DIS: 09/28/2022 SPEC #: [id number] RECD: 09/28/22 13:18 STATUS: MARIA C REQ #: [id number] DENISE: 09/28/22 10:[address]: Jose Guerra DEPT: Surgical Specimen RECD BY: Miley Heller ENTERED: 09/28/22 13:19 SP TYPE: Bowel OTHR DR: Stephany Rodriguez Tissues: 1 - BIOPSY BOWEL Procedures: GROSS AND MICRO LEVEL 4 Comments: [id number]
[2022-09-28 11:01] VITALS: BP 126/83; PULSE 77; RESP 17; TEMP 36.4; O2SAT 96
[2022-09-28 11:26] VITALS: BP 176/94; PULSE 72; RESP 18; TEMP 36.3; O2SAT 96
--- NOTE | 2022-09-28 12:32 | W.ANESPOSTOP ---
Postoperative Evaluation Date, Time and Location Date Performed: 09/28/22 Time Performed: : Patient Location: Day Surgery Unit Vital Signs Most Recent Imported Vital Signs: Most Recent Vital Signs Temp Pulse Resp BP Pulse Ox 36.3 C L 72 18 176/94 H 96 09/28/22 11:09/28/22 11:09/28/22 11:09/28/22 11:09/28/22 11: Pain Score Most Recent Pain Score: Most Recent Pain Score Pain Level 0 09/28/22 11:26 Assessment Mental Status: Awake (Alert & Oriented to Patient Baseline) Airway and Respiratory Function: Patent airway with normal (patient baseline) respiratory exam Cardiovascular Function: Hemodynamically Stable Hydration Status: Adequately Hydrated Nausea & Vomiting: No Nausea or Vomiting Pain: Pt. Denies Any Pain Peripheral Nerve Block: Patient did not receive a nerve block
== END 2022-09-28 11:40 | disposition home or self-care (01) ==
PROVIDERS: PCP Family Medicine; Visit Provider Surgery
PROC: 0DJD8ZZ Inspection of Lower Intestinal Tract, Via Natural or Artificial Opening Endoscopic (ICD-10-PCS; CPT 45378; principal; 2022-09-28 10:30)
DX: Z12.11 Encounter for screening for malignant neoplasm of colon (principal); K63.5 Polyp of colon; K57.30 Diverticulosis of large intestine without perforation or abscess without bleeding
CPT/HCPCS: 45380; 88305

== ENCOUNTER → 2022-12-01 14:15 | Outpatient (BNVA) | payer MEDICARE, OTHER, SELFPAY | PROVIDERS: PCP Family Medicine; Referring Provider Family Medicine; Visit Provider Physician Assistant | DX: M17.11 Unilateral primary osteoarthritis, right knee (principal) | CPT/HCPCS: 20610; J1040 ==

== ENCOUNTER 2022-12-05 16:18 | Emergency (ER) | payer MEDICARE, OTHER, SELFPAY ==
[2022-12-05] VITALS (13 sets, daily range): BP systolic 114–172; BP diastolic 16–107; PULSE 97–254; RESP 16–84; TEMP 36.4; O2SAT 71–96
--- NOTE | 2022-12-05 16:15 | RT.EKG_ITS ---
APPROVED REPORT Exam: Resting ECG Reason for Exam: SOB Patient Location: E HR:107 bpm ECG Measurements Heart Rate 107 AXIS TX 142 P 85 QRSd 126 QRS -82 QT 260 T -16 QTc 347 Conclusion Anterolateral STEMI
[2022-12-05] MEDS: MORPHine 10 MG/ML VIAL 2 MG IVP (16:30)
[2022-12-05] MEDS: Aspirin 81 MG CHEW (16:30)
--- NOTE | 2022-12-05 16:33 | ED.GENADUL_ITS ---
Discharge Plan Disposition Patient Disposition: Discharge Details Clinical Impression: Hypertensive cardiovascular disease, Cardiac arrest Primary Care Provider: Stephany Rodriguez ED Provider: Law Fabian Medical Decision Making 72-year-old male with a history of hypertension presents with onset of chest pain last night that he states was not too bad. It persisted today and increased this afternoon. Associate with diaphoresis at home. He felt weak and almost fell in the bathroom but did not injure himself and denies having syncope. He arrives to the ER slightly tachycardic with a pulse of 100. He is alert and interactive at the time of triage. I saw the patient at the time of triage. Initial screening EKG shows impressive anterolateral ST segment elevation. Consistent with STEMI. After I left the room I was almost immediately called back for unresponsiveness. The patient was pulseless. Immediate CPR was initiated, the patient was moved to resuscitation room, resuscitation attempts were initiated. Patient was intubated with an endotracheal tube. Multiple rounds of epinephrine, sodium bicarb, calcium gluconate were administered. Patient received tenecteplase given the presentation of ST segment elevation [place]. He was placed on a heparin drip. At approximately the midpoint of the resuscitation, the patient was noted to have 9 V. fib. 2 attempts at defibrillation were attempted with no resumption of cardiac activity and no resumption of pulse. Resuscitation began approximately 1628. After prolonged pulselessness, no resumption of cardiac activity on bedside ultrasound, and in consultation with the patient's family resuscitation attempts were withdrawn and the patient was pronounced at 1725. Case was discussed with the infertility medical assistant, he will not be a infertility medical assistant case. I will sign the patient's certificate. HPI General Mode of arrival: ambulatory . Date/Time Provider Initiated Documentation: 12/05/22 16:26 . Limitations to Documentation: no limitations . Information obtained by: patient and family . History of Present Illness 72 year old M presents to the emergency department with the chief complaint of Chest pain, described as moderate and severe, and is localized to the chest. Patient reports no radiation. Patient started experiencing this hour(s) and it has been constant. No relieving factors improve symptom(s), No exacerbating factors reported . Patient notes chest pain, diaphoresis, shortness of breath, weakness and other; denies syncope. Patient did receive the following treatments prior to arrival, none Related Data Home Medications Medication Instructions Recorded Confirmed allopurinol 100 mg tablet 100 mg PO DAILY 05/18/15 12/02/22 naproxen sodium 220 mg tablet 2 tab PO PRN PRN 01/15/16 12/02/22 (Aleve) diltiazem HCl 240 mg 240 mg PO DAILY 04/07/22 12/02/22 capsule,extended release 24 hr oxybutynin chloride 10 mg 10 mg PO DAILY 04/07/22 12/02/22 tablet,extended release 24 hr tolterodine 2 mg capsule,extended 1 cap PO DAILY 05/29/22 12/02/22 release 24 hr Allergies Allergy/AdvReac Type Severity Reaction Status Date / Time No Known Allergies Allergy Verified 12/05/22 16:29 General LORI: 3 Review of Systems Narrative: 8 systems reviewed and otherwise negative PFSH All Active Problems (Updated 12/05/22 @ 18:02 by Law Fabian MD) Hypertensive cardiovascular disease (Acute) Cardiac arrest (Acute) Urethral cancer (Acute) Hypertension (Chronic) Colon polyp (Acute) Primary osteoarthritis of right knee (Acute) Steroid injection: 12/01/2022; 08/24/2022; 05/18/2022 Pneumonia (Acute) Status post prostatectomy (Acute) Weight loss (Acute) Former smoker (Acute) Abnormal CT scan, chest (Acute) 09/07/22 Medical History (Updated 12/05/22 @ 18:02 by Law Fabian MD) Bilateral cataracts Jeannie infection, oral Constipation Gout Prostate cancer Surgical History H/O prostatectomy History of cataract surgery History of colonoscopy Family History Father , age 70's; unknown cause No problems noted. Mother , age 74; unknown cause No problems noted. Brother , age 74, unknown cause No problems noted. Sister , age 76, unknown cause No problems noted. Social History Smoking/Tobacco Use Status: Former Tobacco Use Quit Date: 05/29/22 Tobacco: How many years used: 26 Smoking risk assessment performed?: Yes Alcohol Intake: former Drug use: Never Substance use type: does not use Current gender identity: male Do you feel safe at home: Yes Do you feel safe in your relationship?: Yes Exam Narrative Exam Narrative: GEN: awake, alert. Pleasant, well groomed, interactive. HEAD: Normocephalic, atraumatic ENT: Mucous membranes moist, oropharynx unremarkable, External ear exam unremarkable EYES: PERRL, EOMI NECK: Full ROM, no DAMARIS, no menigismus CHEST/RESP: Nontender, clear to auscultation bilateral, no wheeze/rhonchi/rales CARDIOVASCULAR: RRR, no murmur, rub joi. 2+ Rad pulse bilateral ABDOMEN: Soft, nontender, no mass. +Bowel sounds EXT: Full ROM, no edema, no rash Neuro: Grossly normal neurologic exam, conversant, interactive. Psych: Speech fluent, thoughts congruent, affect normal Procedures Intubation sedative: none ET Tube Size: 7.5 ET Tube Uncuffed: Yes Tube Secured Depth (cm): 22 Tube Secured Location: teeth Tube Placement Confirmation: visualized tube passing through cords and equal breath sounds bilaterally Critical Care Time Critical Care Time Critical Care Time: Yes Total Critical Care Time: 30
[2022-12-05] MEDS: EPINEPHrine 1 MG/10 ML SYR (16:38)
[2022-12-05] MEDS: Calcium Gluconate 4.65 MEQ/10 ML VIAL 4.65 MG (16:50)
[2022-12-05 17:19] LABS: Abs Immature Grans 0.12 10^3/uL (0.0-0.06); Absolute Lymphocyte Count 4.25 10^3/uL (1.2-3.4); Absolute Neutrophil Count 16.56 10^3/uL (1.2-6.7); Basophils % 0.3; Eosinophils % 0.2; HCT 46.8 % (40.0-50.0); HGB 15.1 g/dL (13.5-17.5); Immature Grans % 0.5; Lymphocytes % 18.2; MCH 29.5 pg (27.0-33.0); MCHC 32.3 % (32.0-36.0); MCV 91 fL (80-95); MPV 10.5 fL (8.0-11.0); Monocytes % 9.9; Neutrophils % 70.9; Platelet Count 411 10^3/uL (130-400); RBC 5.12 10^6/uL (4.36-5.78); RDW 13.9 % (11.8-14.1); RDW-SD 47.2 fL; WBC 23.35 10^3/uL (4.4-10.8)
[2022-12-05 17:27] LABS: Absolute Basophil Count 0.07 10^3/uL (0.0-0.2); Absolute Eosinophil Count 0.05 10^3/uL (0.0-0.7); Absolute Monocyte Count 2.31 10^3/uL (0.1-0.8)
[2022-12-05 17:32] LABS: INR 1.1 (0.9-1.1); PTT Activated 23.6 sec (21.0-27.5); Prothrombin Time 10.9 sec (9.3-11.0)
[2022-12-05 17:39] LABS: ALT 51 U/L (16-63); AST 108 U/L (15-37); Albumin 3.9 g/dL (3.4-5.0); Alkaline Phosphatase 90 U/L (46-116); Anion Gap 13.1 mmol/L (3-11); BUN 36 mg/dL (7-18); Bilirubin, Total 0.8 mg/dL (0.2-1.0); CO2 24.9 mmol/L (21.0-32.0); CREATININE 1.4 mg/dL (0.70-1.30); Calcium 9.9 mg/dL (8.5-10.1); Chloride 99 mmol/L (98-107); Estimated GFR 52.74 (mL/min/1.73m2); Glucose 250 mg/dL (74-106); Magnesium 1.9 mg/dL (1.8-2.4); Potassium 3.4 mmol/L (3.5-5.1); Sodium 137 mmol/L (136-145); Total Protein 8.2 g/dL (6.4-8.2)
[2022-12-05 17:40] LABS: Troponin I 11269 ng/L (<or=60)
[2022-12-05 17:54] LABS: Diff Comment Agrees w/ Instrument; RBC Morphology Normal
--- NOTE | 2022-12-05 19:12 | NUR.NOTE ---
Nursing Note: patient arrived to patient room 8 around 1620 with CC of CP. Patient was alert and oriented, being wheeled in WC by due to weakness. EKG done immediately in room, showing STEMI. Patient denies cardiac history. MD Lieberman notified. VS obtained, WNL. 2L NC placed for comfort and two bilateral 18 gauge IV's placed. Patient given oral aspirin (324 mg) and 2 mg IVP Morphine. Patient on continuous monitoring. AT 1636, patient became unresponsive and a pulse was lost. CPR initated by this RN and RN Yolie. MD Lieberman at bedside. BVM placed for airway support. CPR continued while moving patient emergently to room 2. Code went as follows: 1638: 1 amp epi given 1641: No pulse, PEA. ET tube placed by MD Lieberman with RT at bedside. No RSI meds given. 1642: 1 amp epi given 1643: No pulse, PEA. Ultrasound assessment being performed by MD LIEBERMAN and ICU attending MD MARQUEZ at every pulse check from here on out. 1644: 1 amp epi given 1645: No pulse, PEA. 45 MG TNK given IVP. 1647: No pulse, PEA. 1648: 1 amp epi given. 1649: No pulse, PEA. 1650: 10 ml Calcium Gluconate given IVP. 1651: No pulse, 1 amp epi given. 1652: ROSC achieved. 1654: Pulse lost, compressions resumed. 1656: Vfib noted on monitor, shocked at 200V. Compressions resumed. 1658: No pulse, PEA. 1 amp epi given. 1700: Vfib, shocked at 200V. Heparin drip initiated at 1000U/HR. 5000U bolus given. 1701: 300mg amiodorone given IVP. 1702: No pulse, PEA. 1704: No pulse, PEA. 1 amp epi given. 1 amp bicarb given IVP. 1706: No pulse, PEA. Epinephrine drip started at 10 mcg/min. 1707: 1 amp epi given. 1708: No pulse, PEA. 1710: No pulse, PEA. 1711: 1 amp bicarb given IVP. 1712: No pulse, PEA. Fingerstick of 163. 1714: No pulse, PEA. 1716: No pulse, PEA. 1717: VFib, shocked at 200V. 1719: No pulse, PEA. 1721: No pulse, PEA. 1722: 1 amp epi given. 1723: No pulse, PEA. 1725: Family at bedside, no pulse. Care withdrawn. TOD called at 1725 by MD Lieberman. Marisa at bedside with family. Post mortem care completed, see worklist for further documentation. Lines removed, belongings sent to [facility] with patient, valuables sent home with family.
--- NOTE | 2022-12-05 22:46 | NUR.NOTE ---
patient at 1725, to angelito at 1853.Nursing Note:
== END 2022-12-05 18:53 | disposition expired ==
PROVIDERS: Emergency Provider Emergency Medicine; PCP Family Medicine
DX: I46.9 Cardiac arrest, cause unspecified (principal); I11.9 Hypertensive heart disease without heart failure; I21.09 ST elevation (STEMI) myocardial infarction involving other coronary artery of anterior wall
CPT/HCPCS: 31500; 36416; 80053; 82962; 93005; 96365; 96366; 96368; 96375; 99291; 83735; 84484; 85025; 85610; 85730; 93010; J0171; J0610; J2270; J3101